=== PATIENT | male | born 1975 | race Caucasian/White ===

== ENCOUNTER 2021-10-15 19:37 | Inpatient (IN) ==
[2021-10-15] MEDS ORDERED: ONDANSETRON INJ 2 MG/ML 2 ML VIAL IV STA (19:43)
[2021-10-15] MEDS ORDERED: SODIUM CHLORIDE 0.9% 1000ML 1,000 ML IV ONE (19:43)
[2021-10-15] MEDS ORDERED: ONDANSETRON INJ 2 MG/ML 2 ML VIAL ONE (19:45)
[2021-10-15] MEDS ORDERED: MoRPHine SULFATE 4 MG/ML 1 ML CARP\\VIAL IV STA (19:48)
--- NOTE | 2021-10-15 19:54 | Emergency Department Note ---
History of Present Illness General Chief Complaint: Vomiting Stated Complaint: VOMITING/ ABDOMINAL PAIN Time Seen by Provider: 10/15/21 19:43 History of Present Illness Provider Complaint: abdominal pain Onset (ago): 1 day(s) Pain Consistency: constant Location: epigastric Radiation: back Maximum Pain Intensity: 8 Current Pain Intensity: 8 Quality: + stabbing and + sharp Relieved By: + nothing Exacerbated By: + nothing Context: + possible food poisoning (Started after eating spicy food yesterday); no foreign travel, no sick contacts, no recent antibiotic use, no recent surgery/procedure or no recent injury Associated Symptoms: + nausea; no vomiting, no diarrhea, no fever, no chills, no constipation, no dysuria, no hematemesis, no hematochezia, no melena, no hematuria, no anorexia, no syncope, no headache, no neck pain, no chest pain, no weakness and no numbness Home Medications Medication Instructions Recorded Confirmed Type No Known Home Medications 10/15/21 10/15/21 History Allergies Allergy/AdvReac Type Severity Reaction Status Date / Time No Known Allergies Allergy Unverified 10/15/21 21:35 Past Med/Surg History Medical History No pertinent family history No pertinent past medical history Surgical History No pertinent past surgical history Social History Smoking Status: Never smoker Hx Alcohol Use: No Hx Substance Use: No Preferred Language: Macedonian Feels Safe at Home: Yes Review of Systems A total of 10 systems reviewed and were otherwise negative Physical Exam Vital Signs: Vital Signs - 24 hr 10/15/21 19:41 10/15/21 19:51 10/15/21 20:03 Temperature Temperature Source Pulse Rate 73 69 48 L Pulse Rate from Sp O2 Sensor Respiratory Rate 18 19 16 Blood Pressure 130/92 147/87 H 104/64 Blood Pressure Camryn n 104 107 77 Blood Pressure Pos ition Sitting Pulse Oximetry 98 96 96 Oxygen Delivery Me thod Room Air Room Air Room Air Sepsis Recent Feve r Within 48 Hours No Sepsis New/Unexpla ined Change in Men anam Status N/A Sepsis Action Take n by Nursing No Action Required 10/15/21 20:15 10/15/21 20:32 10/15/21 20:45 Temperature Temperature Source Pulse Rate 57 L 79 60 Pulse Rate from Sp O2 Sensor 80 Respiratory Rate 19 14 17 Blood Pressure 136/86 146/88 H Blood Pressure Camryn n 102 107 Blood Pressure Pos ition Pulse Oximetry 95 97 Oxygen Delivery Me thod Room Air Sepsis Recent Feve r Within 48 Hours Sepsis New/Unexpla ined Change in Men anam Status Sepsis Action Take n by Nursing 10/15/21 21:00 10/15/21 21:11 10/15/21 21:15 Temperature 36.1 C L Temperature Source Oral Pulse Rate 60 64 Pulse Rate from Sp O2 Sensor Respiratory Rate 15 18 Blood Pressure 142/90 H 141/90 H Blood Pressure Camryn n 107 107 Blood Pressure Pos ition Pulse Oximetry 96 96 Oxygen Delivery Me thod Room Air Room Air Sepsis Recent Feve r Within 48 Hours Sepsis New/Unexpla ined Change in Men anam Status Sepsis Action Take n by Nursing 10/15/21 21:30 10/15/21 22:00 10/15/21 22:30 Temperature Temperature Source Pulse Rate 64 68 85 Pulse Rate from Sp O2 Sensor Respiratory Rate 21 17 19 Blood Pressure 137/80 150/91 H 152/93 H Blood Pressure Camryn n 99 110 112 Blood Pressure Pos ition Pulse Oximetry 96 94 95 Oxygen Delivery Me thod Room Air Room Air Room Air Sepsis Recent Feve r Within 48 Hours Sepsis New/Unexpla ined Change in Men anam Status Sepsis Action Take n by Nursing 10/15/21 23:00 10/15/21 23:30 Temperature Temperature Source Pulse Rate 69 73 Pulse Rate from Sp O2 Sensor Respiratory Rate 12 21 Blood Pressure 149/95 H 145/97 H Blood Pressure Camryn n 113 113 Blood Pressure Pos ition Pulse Oximetry 94 93 Oxygen Delivery Me thod Room Air Room Air Sepsis Recent Feve r Within 48 Hours Sepsis New/Unexpla ined Change in Men anam Status Sepsis Action Take n by Nursing Physical Exam: Physical Exam GENERAL: Distressed. HENT: Exam performed. - Head: Normocephalic and atraumatic. - Right Ear: External ear normal. No mastoid tenderness. - Left Ear: External ear normal. No mastoid tenderness. - Mouth/Throat: The oropharynx is clear and moist. No trismus in the jaw. No dental abscesses or uvula swelling. No oropharyngeal exudate or tonsillar abscesses. EYES: Conjunctivae and EOM are normal. Pupils are equal, round, and reactive to light. Right eye exhibits no discharge. Left eye exhibits no discharge. No scleral icterus. NECK: Normal range of motion. Neck supple. No JVD present. No spinous process tenderness present. No carotid bruit present. No rigidity. No tracheal deviation and normal range of motion present. No Brudzinski's sign and no Kernig's sign noted. CV: Normal rate, regular rhythm, normal heart sounds and intact distal pulses. There is no peripheral edema. Palpable radial pulses bue. PULM/CHEST: Effort normal and breath sounds normal. No respiratory distress. No stridor. He has no wheezes. He has no rales. - Chest Wall: He exhibits no tenderness. ABD: The abdomen is soft. Bowel sounds are normal. He has no distension. No mass is present. There is tenderness to palpation of the abdominal epigastric area. There is no rebound, no guarding, no Pak's sign and no tenderness at McBurney's point. Rovsig negative. MUSC/SKEL: Normal range of motion. There is no peripheral edema, tenderness or deformity. LYMPH: No cervical adenopathy. NEURO: He is alert and oriented to person, place, and time. He has normal strength. No cranial nerve deficit or sensory deficit. Coordination and gait normal. GCS eye subscore is 4. GCS verbal subscore is 5. GCS motor subscore is 6. Cerebellar tests wnl. SKIN: Patient is pale and diaphoretic. Course Course 194: The patient was evaluated in room A12. A complete history and physical exam was performed Cardiac monitoring: An order was placed for continuous cardiac monitoring. The monitor shows a rate of 70 with sinus rhythm 2114: Vital signs stable. Labs show white blood cell count of 12 normal bilirub in 4.7 direct bilirubin 2.3 AST 1300 ALT 930 alkaline phosphatase 109 lipase 10,707. Imaging shows acute pancreatitis with reactive cholecystitis primary cholecystitis considered less likely. Chest x-ray negative. [facility]. Administered Medications Lactated Ringer's (Lr) 1,000 mls @ 200 mls/hr IV .Q5H STA Stop: 10/16/21 02:21 Last Admin: 10/15/21 22:12 Dose: 200 mls/hr Documented by: [id number] Discontinued Medications Sodium Chloride (Nss 1000ml) 1,000 mls @ 999 mls/hr IV .Q1H1M ONE Stop: 10/15/21 20:43 Last Infusion: 10/15/21 22:07 Dose: 0 mls/hr Documented by: [id number] Admin: 10/15/21 19:58 Dose: 999 mls/hr Documented by: [id number] Piperacillin Sod/Tazobactam Sod (Zosyn) 4.5 gm in 120 mls @ 240 mls/hr IV NOW STA Stop: 10/15/21 21:51 Last Infusion: 10/15/21 22:13 Dose: 0 mls/hr Documented by: [id number] Admin: 10/15/21 21:40 Dose: 240 mls/hr Documented by: [id number] Ioversol (Optiray 320 100ml) 94 ml IV ONCE ONE Stop: 10/15/21 20:24 Last Admin: 10/15/21 20:25 Dose: 94 ml Documented by: [id number] Morphine Sulfate (Morphine Sulfate 4 Mg/Ml 1 Ml Carp\Vial) 4 mg IV NOW STA Stop: 10/15/21 19:49 Last Admin: 10/15/21 20:00 Dose: 2 mg Documented by: [id number] Ondansetron HCl (Ondansetron Inj 2 Mg/Ml 2 Ml Vial) 4 mg IV NOW STA Stop: 10/15/21 19:44 Last Admin: 10/15/21 19:58 Dose: 4 mg Documented by: [id number] Ondansetron HCl (Ondansetron Inj 2 Mg/Ml 2 Ml Vial) Confirm Administered Dose 4 mg .ROUTE .STK-MED ONE Stop: 10/15/21 19:46 Last Admin: 10/15/21 20:01 Dose: Not Given Documented by: [id number] Medical Decision Making Laboratory Data Result diagrams: 10/15/21 19:55 10/15/21 19:55 Lab Results 10/15/21 10/15/21 10/15/21 Range/Units 19:55 19:55 20:03 WBC 12.04 H (4.8-10.8) K/uL RBC 5.80 (4.7-6.1) M/uL Hgb 18.4 H (14.0-18.0) g/dL POC Hgb 18.0 (14.0-18.0) g/dl Hct 50.4 (42-52) % POC Hct 53 H (42-52) % MCV 86.9 (80-100) fL MCH 31.7 (25-34) pg MCHC 36.5 H (32-36) g/dL RDW Std Deviation 39.2 (36.4-46.3) fL RDW Coeff of Dawna 12.4 (11.5-14.5) % Plt Count 292 (130-400) K/uL MPV 9.1 (7.4-10.4) fL Immature Gran % (Auto) 0.2 % Neut % (Auto) 73.2 % Lymph % (Auto) 16.9 % [place] % (Auto) 9.1 % Eos % (Auto) 0.4 % Baso % (Auto) 0.2 % Neut # (Auto) 8.83 H (1.4-6.5) K/uL Lymph # (Auto) 2.03 (1.2-3.4) K/uL [place] # (Auto) 1.09 H (0.11-0.59) K/uL Eos # (Auto) 0.05 (0-0.5) K/uL Baso # (Auto) 0.02 (0-0.2) K/uL Immature Gran # (Auto) 0.02 (0.00-0.02) K/uL POC Sodium 141 (135-144) mmol/L Sodium 139 (136-145) mmol/L POC Potassium 3.4 (3.3-5.0) mmol/L Potassium 3.4 L (3.5-5.1) mmol/L POC Chloride 99 L (101-112) mmol/L Chloride 101 (98-107) mmol/L Carbon Dioxide 28 (21-32) mmol/L POC Total CO2 27 (24-31) mmol/L Anion Gap 10 (3-11) POC Anion Gap 20.0 (16-25) mmol/L POC BUN 9 (7-18) mg/dl BUN 11 (6-23) mg/dl Creatinine 0.88 (0.6-1.4) mg/dl POC Creatinine 0.8 (0.6-1.3) mg/dl Est Cr Clr Drug Dosing 123.2 ml/min Est GFR ( Amer) 120.2 ml/min Est GFR (Non-Af Amer) 103.7 ml/min BUN/Creatinine Ratio 12.5 (10-20) Glucose 154 H (70-99(Fasting)) mg/dl POC Glucose (other) 161 H (70-99) mg/dl Calcium 9.3 (8.5-10.1) mg/dl POC Ioniz Calcium Bernie 1.07 L (1.12-1.32) mmol/l Total Bilirubin 4.7 H (0.2-1.0) mg/dl Direct Bilirubin 2.3 H (0-0.2) mg/dl AST 1300 H (13-39) U/L ALT 930 H (7-52) U/L Alkaline Phosphatase 109 H (34-104) U/L Total Protein 7.9 (6.0-8.3) gm/dl Albumin 4.7 (3.4-5.0) gm/dl Lipase 31054 H (11-82) U/L SARS-CoV-2, RNA, NAAT (NEGATIVE) 10/15/21 Range/Units 21:02 WBC (4.8-10.8) K/uL RBC (4.7-6.1) M/uL Hgb (14.0-18.0) g/dL POC Hgb (14.0-18.0) g/dl Hct (42-52) % POC Hct (42-52) % MCV (80-100) fL MCH (25-34) pg MCHC (32-36) g/dL RDW Std Deviation (36.4-46.3) fL RDW Coeff of Dawna (11.5-14.5) % Plt Count (130-400) K/uL MPV (7.4-10.4) fL Immature Gran % (Auto) % Neut % (Auto) % Lymph % (Auto) % [place] % (Auto) % Eos % (Auto) % Baso % (Auto) % Neut # (Auto) (1.4-6.5) K/uL Lymph # (Auto) (1.2-3.4) K/uL [place] # (Auto) (0.11-0.59) K/uL Eos # (Auto) (0-0.5) K/uL Baso # (Auto) (0-0.2) K/uL Immature Gran # (Auto) (0.00-0.02) K/uL POC Sodium (135-144) mmol/L Sodium (136-145) mmol/L POC Potassium (3.3-5.0) mmol/L Potassium (3.5-5.1) mmol/L POC Chloride (101-112) mmol/L Chloride (98-107) mmol/L Carbon Dioxide (21-32) mmol/L POC Total CO2 (24-31) mmol/L Anion Gap (3-11) POC Anion Gap (16-25) mmol/L POC BUN (7-18) mg/dl BUN (6-23) mg/dl Creatinine (0.6-1.4) mg/dl POC Creatinine (0.6-1.3) mg/dl Est Cr Clr Drug Dosing ml/min Est GFR ( Amer) ml/min Est GFR (Non-Af Amer) ml/min BUN/Creatinine Ratio (10-20) Glucose (70-99(Fasting)) mg/dl POC Glucose (other) (70-99) mg/dl Calcium (8.5-10.1) mg/dl POC Ioniz Calcium Bernie (1.12-1.32) mmol/l Total Bilirubin (0.2-1.0) mg/dl Direct Bilirubin (0-0.2) mg/dl AST (13-39) U/L ALT (7-52) U/L Alkaline Phosphatase (34-104) U/L Total Protein (6.0-8.3) gm/dl Albumin (3.4-5.0) gm/dl Lipase (11-82) U/L SARS-CoV-2, RNA, NAAT NEGATIVE (NEGATIVE) Imaging Data Radiologist's Impression: Abdomen/Pelvis CT 10/15/21 19:48 CT abd pelvis IV con only CLINICAL HISTORY: epigastric pain TECHNIQUE: Helical axial images of the abdomen and pelvis were obtained and displayed. Automated dose lowering techniques and/or adjustment according to pat ient size were utilized for this exam. This exam was performed with intravenous contrast. CT DOSE: 549.41 mGy.cm COMPARISON: None available at the time of this dictation. FINDINGS: Lower chest: Bibasilar atelectasis versus scarring is seen. Liver: Unremarkable. No focal lesions are seen. Gallbladder and biliary tree: The gallbladder wall is thickened measuring 4 mm. Pericholecystic fluid is seen. No intra- or extrahepatic biliary ductal dilation. Pancreas: A small amount of edema is seen at the pancreatic head and there is peripancreatic fluid. Spleen: Unremarkable. Adrenals: Unremarkable. Kidneys and ureters: There is a cyst in the right kidney inferior pole. Bladder: Unremarkable. Reproductive organs: Unremarkable. Bowel: Unremarkable appearance of the bowel. The appendix is normal. Lymph nodes Retroperitoneal: Unremarkable. Mesenteric: Unremarkable. Pelvic: Unremarkable. Peritoneum: Fluid is seen about the pancreas and extending about the upper abdo men. Vessels: Unremarkable. Abdominal wall: Unremarkable. Bones: Unremarkable. IMPRESSION: Findings are compatible with acute pancreatitis with reactive cholecystitis. Primary cholecystitis is considered less likely. No wall off fluid collection or necrosis is seen. ACT 112: Negative or not required by law. Electronically signed by: Efren Mcfadden M.D. 10/15/2021 8:51 PM Chest X-Ray 10/15/21 19:49 XR chest 1V portable CLINICAL HISTORY: epigastric pain TECHNIQUE: Single frontal radiograph of the chest was obtained. Comparison: None available at the time of this dictation. FINDINGS: No lines and tubes are seen. The cardiomediastinal silhouette is normal. Mild atelectasis is at the left lung base. No evidence of pleural effusion or pneumot horax. IMPRESSION: No acute chest disease. ACT 112: Negative or not required by law. Electronically signed by: Efren Mcfadden M.D. 10/15/2021 8:15 PM ECG Data Indication: abdominal pain Rate (beats per minute): 66 Rhythm: normal sinus Findings: no ST depression, no ST elevation or no prolonged QT MDM Narrative Vital signs stable. Labs show white blood cell count of 12 normal bilirubin 4.7 direct bilirubin 2.3 AST 1300 ALT 930 alkaline phosphatase 109 lipase 10,707. Imaging shows acute pancreatitis with reactive cholecystitis primary cholecystitis considered less likely. Chest x-ray negative. [facility]. Impression & Plan Pancreatitis Discharge Plan Visit Data Chief Complaint: Vomiting Stated Complaint: VOMITING/ ABDOMINAL PAIN Discharge Problem: Pancreatitis Patient Disposition: Admitted As Inpatient Forms Stand Alone Forms: [facility] Prescriptions Prescriptions: No Action No Known Home Medications RF: 0 Referrals Referrals: PCP,NO [Primary Care Provider] -
[2021-10-15 20:08] LABS: Basophils # (auto) 0.02 K/uL (0-0.2); Basophils % (auto) 0.2 %; Eosinophils # (auto) 0.05 K/uL (0-0.5); Eosinophils % (auto) 0.4 %; Hematocrit (blood only) 50.4 % (42-52); Hemoglobin 18.4 g/dL (14.0-18.0); Immature Granulocytes # (auto) 0.02 K/uL (0.00-0.02); Immature Granulocytes % (auto) 0.2 %; Lymphocytes # (auto) 2.03 K/uL (1.2-3.4); Lymphocytes % (auto) 16.9 %; Mean Corpuscular Hemoglobin 31.7 pg (25-34); Mean Corpuscular Hgb Conc 36.5 g/dL (32-36); Mean Corpuscular Volume 86.9 fL (80-100); Mean Platelet Volume 9.1 fL (7.4-10.4); Monocytes # (auto) 1.09 K/uL (0.11-0.59); Monocytes % (auto) 9.1 %; Neutrophils # (auto) 8.83 K/uL (1.4-6.5); Neutrophils % (auto) 73.2 %; Platelet Count 292 K/uL (130-400); RDW Coefficient of Variation 12.4 % (11.5-14.5); RDW Standard Deviation 39.2 fL (36.4-46.3); White Blood Count 12.04 K/uL (4.8-10.8)
[2021-10-15 20:15] LABS: iSTAT Creatinine 0.8 mg/dl (0.6-1.3); iSTAT Ionized Calcium 1.07 mmol/l (1.12-1.32); iSTAT Potassium 3.4 mmol/L (3.3-5.0)
--- NOTE | 2021-10-15 20:17 | XRay Report ---
XR chest 1V portable CLINICAL HISTORY: epigastric pain TECHNIQUE: Single frontal radiograph of the chest was obtained. Comparison: None available at the time of this dictation. FINDINGS: No lines and tubes are seen. The cardiomediastinal silhouette is normal. Mild atelectasis is at the l eft lung base. No evidence of pleural effusion or pneumothorax. IMPRESSION: No acute chest disease. ACT 112: Negative or not required by law. Electronically signed by: Efren Mcfadden M.D. 10/15/2021 8:15 PM
[2021-10-15] MEDS ORDERED: OPTIRAY 320 100ml IV ONE (20:23)
[2021-10-15 20:36] LABS: BUN Creatinine Ratio 12.5 (10-20); Calcium 9.3 mg/dl (8.5-10.1); Creatinine Clr Calc Pharmacy 123.2 ml/min; Est GFR (African American) 120.2 ml/min; Est GFR (Non-African American) 103.7 ml/min; Potassium 3.4 mmol/L (3.5-5.1)
[2021-10-15 20:47] LABS: Albumin Level 4.7 gm/dl (3.4-5.0); Bilirubin Direct 2.3 mg/dl (0-0.2); Bilirubin,Total 4.7 mg/dl (0.2-1.0); Total Protein 7.9 gm/dl (6.0-8.3)
--- NOTE | 2021-10-15 20:53 | CT Scan Report ---
CT abd pelvis IV con only CLINICAL HISTORY: epigastric pain TECHNIQUE: Helical axial images of the abdomen and pelvis were obtained and displayed. Automated dose lowering techniques and/or adjustment according to patient size were utilized for this exam. This e xam was performed with intravenous contrast. CT DOSE: 549.41 mGy.cm COMPARISON: None available at the time of this dictation. FINDINGS: Lower chest: Bibasilar atelectasis versus scarring is seen. Liver: Unremarkable. No focal lesions are seen. Gallbladder and biliary tree: The gallbladder wall is thickened measuring 4 mm. Pericholecystic fluid is seen. No intra- or extrahepatic biliary ductal dilation. Pancreas: A small amount of edema is seen at the pancreatic head and there is peripancreatic fluid. Spleen: Unremarkable. Adrenals: Unremarkable. Kidneys and ureters: There is a cyst in the right kidney inferior pole. Bladder: Unremarkable. Reproductive organs: Unremarkable. Bowel: Unremarkable appearance of the bowel. The appendix is normal. Lymph nodes Retroperitoneal: Unremarkable. Mesenteric: Unremarkable. Pelvic: Unremarkable. Peritoneum: Fluid is seen about the pancreas and extending about the upper abdomen. Vessels: Unremarkable. Abdominal wall: Unremarkable. Bones: Unremarkable. IMPRESSION: Findings are compatible with acute pancreatitis with reactive cholecystitis. Primary cholecystitis is considered less likely. No wall off fluid collection or necrosis is seen. ACT 112: Negative or not required by law. Electronically signed by: Efren Mcfadden M.D. 10/15/2021 8:51 PM
[2021-10-15] MEDS ORDERED: PIPERACILLIN/TAZOBACTAM 4.5 GM/120 ML BAG IV STA (21:22)
[2021-10-15] MEDS ORDERED: LACTATED RINGER'S 1,000 ML IV STA (21:22)
--- NOTE | 2021-10-15 22:51 | History & Physical Report ---
Date of Service October 15, 2021 Assessment & Plan (1) Pancreatitis: Plan: Possible biliary etiology with possible cholecystitis on imaging Rule out CBD stone given abnormal LFTs No overt sepsis for now Situational hypertension Hyperglycemia rule out DM GMF Bowel rest, IVF Zosyn for possible cholecystitis MRCP Re: Abnormal LFTs GI consult Re: Pancreatitis, abnormal LFTs General surgery consult Re: Possible cholecystitis Check hemoglobin A1c DVT prophylaxis per Lovenox subcu Full code Patient requesting updates from providers. Ms. Lida More, contact #[phone]. Text document was generated using [employer] voice recognition software. It may contain grammatical or spelling errors. Kindly contact undersigned for clarification of any documentation item in question. History of Present Illness Chief Complaint: Abdominal pain Primary Care Provider: NO PCP History obtained from patient and records. No significant medical history. Patient woke up this morning with epigastric discomfort described as tightness. Admits to spicy food and beer intake last night before going to bed. Subsequent emesis. No chest pain, no SOB, no fever, no chills. May have had mild episodes of postprandial discomfort in the past spontaneously resolving. Medical History as above Surgical History : None Family History : Pancreatic tumor, gallstones Personal/Social history : Non-smoker, occasional EtOH intake, [employer] Allergies Allergy/AdvReac Type Severity Reaction Status Date / Time No Known Allergies Allergy Unverified 10/15/21 21:35 Home Medications Medication Instructions Recorded Confirmed Type No Known Home Medications 10/15/21 10/15/21 History Past Med/Surg History Medical History No pertinent family history No pertinent past medical history Surgical History No pertinent past surgical history Social History Smoking Status: Never smoker Hx Alcohol Use: Yes Alcohol type: beer Hx Substance Use: No Preferred Language: Maltese Dry Paste Supervisor Required: No Beliefs That Will Affect Care: None Current Living Situation: Spouse Feels Safe at Home: Yes Safety Concerns: Feels Safe At This Time Assistive Devices: Glasses Review of Systems Review of Systems: As per HPI, all other systems reviewed and negative Physical Exam Physical Exam: GENERAL: Comfortable, slightly anxious, pleasant, no respiratory distress SKIN: Normal color, warm HEENT: Bespectacled, [place] palpebral conjunctivae, no ptosis, dry buccal mucosa NECK : Supple, no tenderness CHEST : CTA, no tenderness HEART : RRR, no obvious murmurs ABDOMEN: Some distention, epigastric tenderness EXTREMITIES : No LE swelling/tenderness, no other conspicuous deformities noted NEUROLOGIC : Coherent, no facial asymmetry, no other gross focality Results & Data Results & Data ([facility]) Vital Signs (Past 12 Hours) Vital Signs Temp Pulse Resp BP Pulse Ox 10/15/21 22:00 68 17 150/91 H 94 10/15/21 21:30 64 21 137/80 96 10/15/21 21:15 64 18 141/90 H 96 10/15/21 21:11 36.1 C L 10/15/21 21:00 60 15 142/90 H 96 10/15/21 20:45 60 17 146/88 H 10/15/21 20:32 79 14 97 10/15/21 20:15 57 L 19 136/86 95 10/15/21 20:03 48 L 16 104/64 96 10/15/21 19:51 69 19 147/87 H 96 10/15/21 19:41 73 18 130/92 98 Laboratory Results Laboratory Results WBC 12.04 K/uL (4.8-10.8) H 10/15/21 19:55 RBC 5.80 M/uL (4.7-6.1) 10/15/21 19:55 Hgb 18.4 g/dL (14.0-18.0) H 10/15/21 19:55 POC Hgb 18.0 g/dl (14.0-18.0) 10/15/21 20:03 Hct 50.4 % (42-52) 10/15/21 19:55 POC Hct 53 % (42-52) H 10/15/21 20:03 MCV 86.9 fL (80-100) 10/15/21 19:55 MCH 31.7 pg (25-34) 10/15/21 19:55 MCHC 36.5 g/dL (32-36) H 10/15/21 19:55 RDW Std Deviation 39.2 fL (36.4-46.3) 10/15/21 19:55 RDW Coeff of Dawna 12.4 % (11.5-14.5) 10/15/21 19:55 Plt Count 292 K/uL (130-400) 10/15/21 19:55 MPV 9.1 fL (7.4-10.4) 10/15/21 19:55 Immature Gran % (Auto) 0.2 % 10/15/21 19:55 Neut % (Auto) 73.2 % 10/15/21 19:55 Lymph % (Auto) 16.9 % 10/15/21 19:55 Imperial % (Auto) 9.1 % 10/15/21 19:55 Eos % (Auto) 0.4 % 10/15/21 19:55 Baso % (Auto) 0.2 % 10/15/21 19:55 Neut # (Auto) 8.83 K/uL (1.4-6.5) H 10/15/21 19:55 Lymph # (Auto) 2.03 K/uL (1.2-3.4) 10/15/21 19:55 Imperial # (Auto) 1.09 K/uL (0.11-0.59) H 10/15/21 19:55 Eos # (Auto) 0.05 K/uL (0-0.5) 10/15/21 19:55 Baso # (Auto) 0.02 K/uL (0-0.2) 10/15/21 19:55 Immature Gran # (Auto) 0.02 K/uL (0.00-0.02) 10/15/21 19:55 POC Sodium 141 mmol/L (135-144) 10/15/21 20:03 Sodium 139 mmol/L (136-145) 10/15/21 19:55 POC Potassium 3.4 mmol/L (3.3-5.0) 10/15/21 20:03 Potassium 3.4 mmol/L (3.5-5.1) L 10/15/21 19:55 POC Chloride 99 mmol/L (101-112) L 10/15/21 20:03 Chloride 101 mmol/L (98-107) 10/15/21 19:55 Carbon Dioxide 28 mmol/L (21-32) 10/15/21 19:55 POC Total CO2 27 mmol/L (24-31) 10/15/21 20:03 Anion Gap 10 (3-11) 10/15/21 19:55 POC Anion Gap 20.0 mmol/L (16-25) 10/15/21 20:03 POC BUN 9 mg/dl (7-18) 10/15/21 20:03 BUN 11 mg/dl (6-23) 10/15/21 19:55 Creatinine 0.88 mg/dl (0.6-1.4) 10/15/21 19:55 POC Creatinine 0.8 mg/dl (0.6-1.3) 10/15/21 20:03 Est Cr Clr Drug Dosing 123.2 ml/min 10/15/21 19:55 Est GFR ( Amer) 120.2 ml/min 10/15/21 19:55 Est GFR (Non-Af Amer) 103.7 ml/min 10/15/21 19:55 BUN/Creatinine Ratio 12.5 (10-20) 10/15/21 19:55 Glucose 154 mg/dl (70-99(Fasting)) H 10/15/21 19:55 POC Glucose (other) 161 mg/dl (70-99) H 10/15/21 20:03 Calcium 9.3 mg/dl (8.5-10.1) 10/15/21 19:55 POC Ioniz Calcium Bernie 1.07 mmol/l (1.12-1.32) L 10/15/21 20:03 Total Bilirubin 4.7 mg/dl (0.2-1.0) H 10/15/21 19:55 Direct Bilirubin 2.3 mg/dl (0-0.2) H 10/15/21 19:55 AST 1300 U/L (13-39) H 10/15/21 19:55 ALT 930 U/L (7-52) H 10/15/21 19:55 Alkaline Phosphatase 109 U/L (34-104) H 10/15/21 19:55 Total Protein 7.9 gm/dl (6.0-8.3) 10/15/21 19:55 Albumin 4.7 gm/dl (3.4-5.0) 10/15/21 19:55 Lipase 88367 U/L (11-82) H 10/15/21 19:55 SARS-CoV-2, RNA, NAAT NEGATIVE (NEGATIVE) 10/15/21 21:02 Impressions Abdomen/Pelvis CT 10/15/21 19:48 CT abd pelvis IV con only CLINICAL HISTORY: epigastric pain TECHNIQUE: Helical axial images of the abdomen and pelvis were obtained and displayed. Automated dose lowering techniques and/or adjustment according to patient size were utilized for this exam. This exam was performed with intravenous contrast. CT DOSE: 549.41 mGy.cm COMPARISON: None available at the time of this dictation. FINDINGS: Lower chest: Bibasilar atelectasis versus scarring is seen. Liver: Unremarkable. No focal lesions are seen. Gallbladder and biliary tree: The gallbladder wall is thickened measuring 4 mm. Pericholecystic fluid is seen. No intra- or extrahepatic biliary ductal dilation. Pancreas: A small amount of edema is seen at the pancreatic head and there is peripancreatic fluid. Spleen: Unremarkable. Adrenals: Unremarkable. Kidneys and ureters: There is a cyst in the right kidney inferior pole. Bladder: Unremarkable. Reproductive organs: Unremarkable. Bowel: Unremarkable appearance of the bowel. The appendix is normal. Lymph nodes Retroperitoneal: Unremarkable. Mesenteric: Unremarkable. Pelvic: Unremarkable. Peritoneum: Fluid is seen about the pancreas and extending about the upper abdomen. Vessels: Unremarkable. Abdominal wall: Unremarkable. Bones: Unremarkable. IMPRESSION: Findings are compatible with acute pancreatitis with reactive cholecystitis. Primary cholecystitis is considered less likely. No wall off fluid collection or necrosis is seen. ACT 112: Negative or not required by law. Electronically signed by: Efren Mcfadden M.D. 10/15/2021 8:51 PM Chest X-Ray 10/15/21 19:49 XR chest 1V portable CLINICAL HISTORY: epigastric pain TECHNIQUE: Single frontal radiograph of the chest was obtained. Comparison: None available at the time of this dictation. FINDINGS: No lines and tubes are seen. The cardiomediastinal silhouette is normal. Mild atelectasis is at the left lung base. No evidence of pleural effusion or pneumothorax. IMPRESSION: No acute chest disease. ACT 112: Negative or not required by law. Electronically signed by: Efren Mcfadden M.D. 10/15/2021 8:15 PM Diagnostic Findings EKG as per my interpretation :Rate 65, NSR, normal axis, no ischemia (1) Pancreatitis Acute pancreatitis complication: unspecified Chronicity: acute Pancreatitis type: unspecified pancreatitis type Qualified Code(s): K85.90 - Acute pancreatitis without necrosis or infection, unspecified
[2021-10-16] MEDS ORDERED: PROMETHAZINE HCL 12.5 MG in SODIUM CHLORIDE 0.9% 50 ML IV PRN (00:15)
[2021-10-16] MEDS ORDERED: oxyCODONE HCL IR 5 MG TAB (IMMEDIATE RELEASE) PO PRN (00:15)
[2021-10-16] MEDS ORDERED: LORazepam 0.5 MG in SYRINGE 0.25 ML IV PRN (00:15)
[2021-10-16] MEDS ORDERED: MoRPHine SULFATE 4 MG/ML 1 ML CARP\\VIAL IV PRN (00:15)
[2021-10-16] MEDS: PIPERACILLIN/TAZOBACTAM 3.375 GM in DEXTROSE 5% 100 ML IV SCH ×3 (04:32→20:28)
[2021-10-16] MEDS: LACTATED RINGER'S 1,000 ML IV SCH ×5 (08:03→23:58)
[2021-10-16] MEDS: ENOXAPARIN INJ 40 MG/0.4 ML SYR SQ SCH (08:03)
[2021-10-16 08:57] LABS: Eosinophils # (auto) 0.01 K/uL (0-0.5); Eosinophils % (auto) 0.1 %; Hematocrit (blood only) 45.7 % (42-52); Hemoglobin 16.6 g/dL (14.0-18.0); Immature Granulocytes # (auto) 0.02 K/uL (0.00-0.02); Immature Granulocytes % (auto) 0.2 %; Lymphocytes # (auto) 0.77 K/uL (1.2-3.4); Lymphocytes % (auto) 7.4 %; Mean Corpuscular Hemoglobin 31.3 pg (25-34); Mean Corpuscular Hgb Conc 36.3 g/dL (32-36); Mean Corpuscular Volume 86.1 fL (80-100); Mean Platelet Volume 9.1 fL (7.4-10.4); Monocytes # (auto) 0.66 K/uL (0.11-0.59); Monocytes % (auto) 6.3 %; Neutrophils # (auto) 8.95 K/uL (1.4-6.5); Platelet Count 235 K/uL (130-400); RDW Coefficient of Variation 12.8 % (11.5-14.5); RDW Standard Deviation 40.1 fL (36.4-46.3); Red Blood Count 5.31 M/uL (4.7-6.1); White Blood Count 10.41 K/uL (4.8-10.8)
[2021-10-16 09:15] LABS: Albumin Globulin Ratio 1.4 (0.9-2); Albumin Level 3.9 gm/dl (3.4-5.0); BUN Creatinine Ratio 12.9 (10-20); Calcium 8.8 mg/dl (8.5-10.1); Creatinine Clr Calc Pharmacy 127.6 ml/min; Est GFR (Non-African American) 105.2 ml/min; Globulin 2.7 gm/dl (2.5-4.0); Potassium 3.7 mmol/L (3.5-5.1); Total Protein 6.6 gm/dl (6.0-8.3)
[2021-10-16 09:16] LABS: Bilirubin,Total 7.1 mg/dl (0.2-1.0)
--- NOTE | 2021-10-16 10:10 | Gastrointestinal Consultation ---
Date of Consultation October 16, 2021 Assessment & Plan (1) Pancreatitis: Seemingly with gallstone pancreatitis without endorgan dysfunction, bilirubin is risen today white count has declined. No signs or obvious symptoms of cholangitis. LFTs may be edema however will obtain an MRCP and tentatively plan for an ERCP tomorrow morning. I would suggest antibiotics with broad- spectrum such as Zosyn, Rocephin, etc. N.p.o., continue IV fluids at 200 cc an hour with LR. Continue symptomatic care please call with questions. If has hemodynamic changes consistent with concern of cholangitis we will expedite ERCP, however in light of stability and improvement, we will await ERCP till tomorrow. History of Present Illness Attending Physician: Tima Duckworth MD History of Present Illness This is a 46 yo who presnts to the ER with acute onset of abdominal pain. Pain is located in the epigastrium and ruq. The pain came on acutely yesterday morning, very sharp in nature. Associated with nausea without vomiting. Did have 1 beer or 2 beers the night before, but does not commonly drink to excess. No fevers or chills currently. Pain is much more improved. Upon presentation he was found to have inflammation consistent with pancreatitis via biochemically as well as imaging modalities. His LFTs are elevated rising from 4.7-7.1 this morning white count is dropped from 12 down to normal range. He looks much more comfortable and states that he is improved. If disease, no intentional weight loss recently, no hematochezia hematemesis or melena. STATUS REF RANGE/AUTHOR Hx 10/15/21 19:49 Chest X-Ray Signed Efren Mcfadden 10/15/21 19:48 Abdomen/Pelvis CT Signed Efren Mcfadden 08/29/21 15:53 Scrotum Ultrasound Signed Efren Mcfadden Bakari 46, M0 1975 ADM IN,[id number] 6ft 2in 98.3kg BSA: 2.27m BMI: 27.8kg/m Acc# [id number] Full Code REG Service Level Service Surgical Services Allergies No Known Allergies Vital Signs Today 07:42 BP 138/77 Pulse 83 Resp 14 Temp 36.9 C O2 Sat 92 Delivery Room Air Problems ONSET Pancreatitis Home Meds Confirmed Prescription Monitoring Program MEDICATIONS (INSTRUCTIONS) LAST TAKEN Active No Known Home Medications Unknown Lab Results Last 24 Hrs Most Recent Diagnostic Imaging Reports Provider Notes Last 24 Hrs HISTORY & PHYSICAL History & Physical 10/15/21 22:51 GENERAL Emergency Room Visit Notes 10/15/21 19:49 Diagnostics Reports BAKARI MOREIRA [id number] Allergy/Adv: No Known Allergies Close Chest X-Ray (Signed) BogdanEfren - 10/15/21 Abdomen/Pelvis CT (Signed) Efren Mcfadden - 10/15/21 Scrotum Ultrasound (Signed) BogdanEfren - 08/29/21 [facility] [place], [place] [phone] CT Scan Report Patient:BAKARI MOREIRA Admit Date:10/15/21 MR#:[id number] Address1:[address] [facility] Acct ID:[id number] Address2: Date:1975 [facility] Zip:[place] [address] Age:46 Location:ED Sex:M Room/Bed: Att Phy: Diagnosis:VOMITING/ ABDOMINAL PAIN Shakila Phy:PCP,NO Service Date:10/15/21 Fam Phy: Interpreting Phy:Efren Mcfadden MDAdmit Phy: Ordering Phy:Ebenezer Martinez MD cc: ~ CT abd pelvis IV con only CLINICAL HISTORY: epigastric pain TECHNIQUE: Helical axial images of the abdomen and pelvis were obtained and displayed. Automated dose lowering techniques and/or adjustment according to patient size were utilized for this exam. This exam was performed with intravenous contrast. CT DOSE: 549.41 mGy.cm COMPARISON: None available at the time of this dictation. FINDINGS: Lower chest: Bibasilar atelectasis versus scarring is seen. Liver: Unremarkable. No focal lesions are seen. Gallbladder and biliary tree: The gallbladder wall is thickened measuring 4 mm. Pericholecystic fluid is seen. No intra- or extrahepatic biliary ductal dilation. Pancreas: A small amount of edema is seen at the pancreatic head and there is peripancreatic fluid. Spleen: Unremarkable. Adrenals: Unremarkable. Kidneys and ureters: There is a cyst in the right kidney inferior pole. Bladder: Unremarkable. Reproductive organs: Unremarkable. Bowel: Unremarkable appearance of the bowel. The appendix is normal. Lymph nodes Retroperitoneal: Unremarkable. Mesenteric: Unremarkable. Pelvic: Unremarkable. Peritoneum: Fluid is seen about the pancreas and extending about the upper abdomen. Vessels: Unremarkable. Abdominal wall: Unremarkable. Bones: Unremarkable. IMPRESSION: Findings are compatible with acute pancreatitis with reactive cholecystitis. Primary cholecystitis is considered less likely. No wall off fluid collection or necrosis is seen. ACT 112: Negative or not required by law. Electronically signed by: Efren Mcfadden M.D. 10/15/2021 8:51 PM Dictated:10/15/212042 Transcribed: 10/15/212042 Allergies Allergy/AdvReac Type Severity Reaction Status Date / Time No Known Allergies Allergy Unverified 10/15/21 21:35 Home Medications Medication Instructions Recorded Confirmed Type No Known Home Medications 10/15/21 10/15/21 History Patient History Medical History No pertinent family history No pertinent past medical history Surgical History No pertinent past surgical history Social History Smoking Status: Never smoker Hx Alcohol Use: Yes Alcohol type: beer Hx Substance Use: No Preferred Language: Syrian Colorist Formulator Required: No Beliefs That Will Affect Care: None Current Living Situation: Spouse Feels Safe at Home: Yes Safety Concerns: Feels Safe At This Time Assistive Devices: Glasses Review of Systems Review of Systems: All systems reviewed & are unremarkable except as noted in HPI & below Physical Exam Physical Exam: Alert and oriented x3 no apparent distress Rate and rhythm no murmurs rubs or gallops clear to auscultation bilaterally Abdomen soft tender in the epigastrium, no rebound Peripheral edema neurologically intact Normal affect Results & Data ([facility]) Vital Signs (Past 12 Hours) Vital Signs Temp Pulse Pulse Resp BP BP BP 10/16/21 07:42 36.9 C 83 14 138/77 10/16/21 00:30 37.3 C 18 165/90 H 10/15/21 23:30 73 21 145/97 H 10/15/21 23:00 69 12 149/95 H 10/15/21 22:30 85 19 152/93 H Pulse Ox 10/16/21 07:42 92 10/16/21 00:30 93 10/15/21 23:30 93 10/15/21 23:00 94 10/15/21 22:30 95 (1) Pancreatitis Acute pancreatitis complication: unspecified Chronicity: acute Pancreatitis type: unspecified pancreatitis type Qualified Code(s): K85.90 - Acute pancreat itis without necrosis or infection, unspecified
--- NOTE | 2021-10-16 10:52 | Surgery Consultation ---
Date of Consultation October 16, 2021 Assessment & Plan (1) Pancreatitis: (2) Elevated LFTs: 46-year-old gentleman presents with pancreatitis most likely from a gallstone, as well as elevated LFTs suggestive of choledocholithiasis. He may have reactive cholecystitis as well. Based on his laboratory evaluation, including his rising total bilirubin, he will require GI consult with ERCP. He will need his gallbladder removed at some point in the future either during this admission or soon after. I had a discussion with him about choledocholithiasis as well as laparoscopic cholecystectomy. All his questions were answered. We will follow along, awaiting GI input. History of Present Illness Reason for Consultation: Choledocholithiasis/pancreatitis Requesting Physician: Tima Duckworth MD Attending Physician: Tima Duckworth MD History of Present Illness 46-year-old gentleman and previously normal health presents with 1 day history of severe upper abdominal pain radiating to his back. He did have chills associated with this. He did have nausea associated with this. He denies fevers. The attack happened after eating spicy food. He denies changes in bowel habits. CT scan demonstrates pancreatitis. Liver function tests include total bilirubin of 7.3, up from 4.7 yesterday. Lipase yesterday was 10,500. Allergies Allergy/AdvReac Type Severity Reaction Status Date / Time No Known Allergies Allergy Unverified 10/15/21 21:35 Home Medications Medication Instructions Recorded Confirmed Type No Known Home Medications 10/15/21 10/15/21 History Patient History Medical History No pertinent family history No pertinent past medical history Surgical History No pertinent past surgical history Social History Smoking Status: Never smoker Hx Alcohol Use: Yes Alcohol type: beer Hx Substance Use: No Preferred Language: Burkinan Program Research Specialist Required: No Beliefs That Will Affect Care: None Current Living Situation: Spouse Feels Safe at Home: Yes Safety Concerns: Feels Safe At This Time Assistive Devices: Glasses Review of Systems Review of Systems: All systems reviewed & are unremarkable except as noted in HPI & below Physical Exam Constitutional: WD/WN, vitals as above Neck: trachea midline, no thyromegaly Respiratory: normal respiratory effort, lungs clear to auscultation Cardiovascular: RRR, no murmur, no edema Gastrointestinal (Abdomen): normal bowel sounds, soft, nontender, no h epatosplenomegaly Musculoskeletal: Extremities: no cyanosis and no clubbing Skin: no rashes, warm and dry Psychiatric: A+Ox3, euthymic affect Results & Data ([facility]) Vital Signs (Past 12 Hours) Vital Signs Temp Pulse Pulse Resp BP BP BP 10/16/21 07:42 36.9 C 83 14 138/77 10/16/21 00:30 37.3 C 18 165/90 H 10/15/21 23:30 73 21 145/97 H 10/15/21 23:00 69 12 149/95 H Pulse Ox 10/16/21 07:42 92 10/16/21 00:30 93 10/15/21 23:30 93 10/15/21 23:00 94 Laboratory Results 10/16/21 10/16/21 10/15/21 Range/Units 08:22 08:22 21:02 WBC 10.41 (4.8-10.8) K/uL RBC 5.31 (4.7-6.1) M/uL Hgb 16.6 (14.0-18.0) g/dL POC Hgb (14.0-18.0) g/dl Hct 45.7 (42-52) % POC Hct (42-52) % MCV 86.1 (80-100) fL MCH 31.3 (25-34) pg MCHC 36.3 H (32-36) g/dL RDW Std Deviation 40.1 (36.4-46.3) fL RDW Coeff of Dawna 12.8 (11.5-14.5) % Plt Count 235 (130-400) K/uL MPV 9.1 (7.4-10.4) fL Immature Gran % (Auto) 0.2 % Neut % (Auto) 86.0 % Lymph % (Auto) 7.4 % Starr % (Auto) 6.3 % Eos % (Auto) 0.1 % Baso % (Auto) 0.0 % Neut # (Auto) 8.95 H (1.4-6.5) K/uL Lymph # (Auto) 0.77 L (1.2-3.4) K/uL Starr # (Auto) 0.66 H (0.11-0.59) K/uL Eos # (Auto) 0.01 (0-0.5) K/uL Baso # (Auto) 0.00 (0-0.2) K/uL Immature Gran # (Auto) 0.02 (0.00-0.02) K/uL POC Sodium (135-144) mmol/L Sodium 136 (136-145) mmol/L POC Potassium (3.3-5.0) mmol/L Potassium 3.7 (3.5-5.1) mmol/L POC Chloride (101-112) mmol/L Chloride 103 (98-107) mmol/L Carbon Dioxide 25 (21-32) mmol/L POC Total CO2 (24-31) mmol/L Anion Gap 8 (3-11) POC Anion Gap (16-25) mmol/L POC BUN (7-18) mg/dl BUN 11 (6-23) mg/dl Creatinine 0.85 (0.6-1.4) mg/dl POC Creatinine (0.6-1.3) mg/dl Est Cr Clr Drug Dosing 127.6 ml/min Est GFR ( Amer) 122.0 ml/min Est GFR (Non-Af Amer) 105.2 ml/min BUN/Creatinine Ratio 12.9 (10-20) Glucose 136 H (70-99(Fasting)) mg/dl POC Glucose (other) (70-99) mg/dl Estimat Average Glucose Hemoglobin A1c Calcium 8.8 (8.5-10.1) mg/dl POC Ioniz Calcium Bernie (1.12-1.32) mmol/l Total Bilirubin 7.1 H D (0.2-1.0) mg/dl Direct Bilirubin (0-0.2) mg/dl AST 800 H (13-39) U/L ALT 1006 H (7-52) U/L Alkaline Phosphatase 127 H (34-104) U/L Total Protein 6.6 (6.0-8.3) gm/dl Albumin 3.9 (3.4-5.0) gm/dl Globulin 2.7 (2.5-4.0) gm/dl Albumin/Globulin Ratio 1.4 (0.9-2) Lipase (11-82) U/L SARS-CoV-2, RNA, NAAT NEGATIVE (NEGATIVE) 10/15/21 10/15/21 10/15/21 Range/Units 20:03 19:55 19:55 WBC (4.8-10.8) K/uL RBC (4.7-6.1) M/uL Hgb (14.0-18.0) g/dL POC Hgb 18.0 (14.0-18.0) g/dl Hct (42-52) % POC Hct 53 H (42-52) % MCV (80-100) fL MCH (25-34) pg MCHC (32-36) g/dL RDW Std Deviation (36.4-46.3) fL RDW Coeff of Dawna (11.5-14.5) % Plt Count (130-400) K/uL MPV (7.4-10.4) fL Immature Gran % (Auto) % Neut % (Auto) % Lymph % (Auto) % Starr % (Auto) % Eos % (Auto) % Baso % (Auto) % Neut # (Auto) (1.4-6.5) K/uL Lymph # (Auto) (1.2-3.4) K/uL Starr # (Auto) (0.11-0.59) K/uL Eos # (Auto) (0-0.5) K/uL Baso # (Auto) (0-0.2) K/uL Immature Gran # (Auto) (0.00-0.02) K/uL POC Sodium 141 (135-144) mmol/L Sodium 139 (136-145) mmol/L POC Potassium 3.4 (3.3-5.0) mmol/L Potassium 3.4 L (3.5-5.1) mmol/L POC Chloride 99 L (101-112) mmol/L Chloride 101 (98-107) mmol/L Carbon Dioxide 28 (21-32) mmol/L POC Total CO2 27 (24-31) mmol/L Anion Gap 10 (3-11) POC Anion Gap 20.0 (16-25) mmol/L POC BUN 9 (7-18) mg/dl BUN 11 (6-23) mg/dl Creatinine 0.88 (0.6-1.4) mg/dl POC Creatinine 0.8 (0.6-1.3) mg/dl Est Cr Clr Drug Dosing 123.2 ml/min Est GFR ( Amer) 120.2 ml/min Est GFR (Non-Af Amer) 103.7 ml/min BUN/Creatinine Ratio 12.5 (10-20) Glucose 154 H (70-99(Fasting)) mg/dl POC Glucose (other) 161 H (70-99) mg/dl Estimat Average Glucose Pending Hemoglobin A1c Pending Calcium 9.3 (8.5-10.1) mg/dl POC Ioniz Calcium Bernie 1.07 L (1.12-1.32) mmol/l Total Bilirubin 4.7 H (0.2-1.0) mg/dl Direct Bilirubin 2.3 H (0-0.2) mg/dl AST 1300 H (13-39) U/L ALT 930 H (7-52) U/L Alkaline Phosphatase 109 H (34-104) U/L Total Protein 7.9 (6.0-8.3) gm/dl Albumin 4.7 (3.4-5.0) gm/dl Globulin (2.5-4.0) gm/dl Albumin/Globulin Ratio (0.9-2) Lipase 80915 H (11-82) U/L SARS-CoV-2, RNA, NAAT (NEGATIVE) 10/15/21 Range/Units 19:55 WBC 12.04 H (4.8-10.8) K/uL RBC 5.80 (4.7-6.1) M/uL Hgb 18.4 H (14.0-18.0) g/dL POC Hgb (14.0-18.0) g/dl Hct 50.4 (42-52) % POC Hct (42-52) % MCV 86.9 (80-100) fL MCH 31.7 (25-34) pg MCHC 36.5 H (32-36) g/dL RDW Std Deviation 39.2 (36.4-46.3) fL RDW Coeff of Dawna 12.4 (11.5-14.5) % Plt Count 292 (130-400) K/uL MPV 9.1 (7.4-10.4) fL Immature Gran % (Auto) 0.2 % Neut % (Auto) 73.2 % Lymph % (Auto) 16.9 % Starr % (Auto) 9.1 % Eos % (Auto) 0.4 % Baso % (Auto) 0.2 % Neut # (Auto) 8.83 H (1.4-6.5) K/uL Lymph # (Auto) 2.03 (1.2-3.4) K/uL Starr # (Auto) 1.09 H (0.11-0.59) K/uL Eos # (Auto) 0.05 (0-0.5) K/uL Baso # (Auto) 0.02 (0-0.2) K/uL Immature Gran # (Auto) 0.02 (0.00-0.02) K/uL POC Sodium (135-144) mmol/L Sodium (136-145) mmol/L POC Potassium (3.3-5.0) mmol/L Potassium (3.5-5.1) mmol/L POC Chloride (101-112) mmol/L Chloride (98-107) mmol/L Carbon Dioxide (21-32) mmol/L POC Total CO2 (24-31) mmol/L Anion Gap (3-11) POC Anion Gap (16-25) mmol/L POC BUN (7-18) mg/dl BUN (6-23) mg/dl Creatinine (0.6-1.4) mg/dl POC Creatinine (0.6-1.3) mg/dl Est Cr Clr Drug Dosing ml/min Est GFR ( Amer) ml/min Est GFR (Non-Af Amer) ml/min BUN/Creatinine Ratio (10-20) Glucose (70-99(Fasting)) mg/dl POC Glucose (other) (70-99) mg/dl Estimat Average Glucose Hemoglobin A1c Calcium (8.5-10.1) mg/dl POC Ioniz Calcium Bernie (1.12-1.32) mmol/l Total Bilirubin (0.2-1.0) mg/dl Direct Bilirubin (0-0.2) mg/dl AST (13-39) U/L ALT (7-52) U/L Alkaline Phosphatase (34-104) U/L Total Protein (6.0-8.3) gm/dl Albumin (3.4-5.0) gm/dl Globulin (2.5-4.0) gm/dl Albumin/Globulin Ratio (0.9-2) Lipase (11-82) U/L SARS-CoV-2, RNA, NAAT (NEGATIVE) (1) Pancreatitis Acute pancreatitis complication: unspecified Chronicity: acute Pancreatitis type: unspecified pancreatitis type Qualified Code(s): K85.90 - Acute pancreatitis without necrosis or infection, unspecified
--- NOTE | 2021-10-16 12:07 | Magnetic Resonance Report ---
MRCP CLINICAL HISTORY: pancreatitis and elevated lft's, eval CBD TECHNIQUE: Utilizing a 1.5 Inge magnet and dedicated coil, multiplanar, multiecho imaging of the [facility] er abdomen was performed utilizing heavily T2 weighted pulsing sequences without IV contrast. COMPARISON STUDY: CT of the abdomen pelvis October 15, 2021. FINDINGS: No intra or extrahepatic biliary ductal dilatation is present. No common bile duct calculi are identified. There is apparent extrinsic narrowing of the mid common bile duct shown best on coron al 3-D MRCP the sequence image 60 of 108. This could be artifactual of related to extrinsic compressi on by the edematous pancreas. Course and caliber of the main pancreatic duct is normal. Peripancreati c fluid extending into the anterior pararenal spaces represents acute pancreatitis. No peripancreatic fluid collection is present. There are numerous gallstones within the gallbladder. Gallbladder is no t distended. Small amount of pericholecystic fluid is nonspecific in the setting of acute pancreatiti s. Perihepatic and perisplenic fluid is also noted. A suspected 2.7 cm cyst within lower pole of the right kidney is noted. There is no hydronephrosis. Unenhanced images of the adrenal glands, spleen ar e unremarkable. Caliber of visualized small and large bowel are normal. IMPRESSION: 1. No biliary ductal dilatation. No common bile duct calculi identified. Apparent irregularity/extrin sic narrowing of the mid common bile duct likely artifactual or related to mass effect on the common bile duct by the edematous pancreas. 2. Cholelithiasis. Small amount of pericholecystic fluid, probably related to acute pancreatitis. 3. Peripancreatic fluid extending into the anterior pararenal spaces. Associated perihepatic and angelina splenic fluid. The findings represent an acute pancreatitis. No peripancreatic fluid collection. ACT 112: Negative or not required by law. Electronically signed by: Kobi Gastelum M.D. 10/16/2021 12:04 PM
--- NOTE | 2021-10-16 14:36 | Anesthesiology Consultation ---
Date of Service October 16, 2021 Assessment & Plan (1) Encounter for pre-operative examination: Chart Review Chart Review: Acceptable Risk for Surgery History Surgery Operation Date: 10/17/21 09:30 Proposed Procedures p Endoscopic Retrograde Cholangiopancreato - Calvin Wills MD Height/Weight Height: 6 ft 2 in Weight: 98.3 kg Allergies Allergy/AdvReac Type Severity Reaction Status Date / Time No Known Allergies Allergy Unverified 10/15/21 21:35 Medications Home Medications Medication Instructions Recorded Confirmed Last Taken No Known Home Medications 10/15/21 10/15/21 Unknown Active Medications Generic Name Dose Route Start Last Admin Trade Name Freq PRN Reason Stop Dose Admin Enoxaparin Sodium 40 mg 10/16/21 09:00 10/16/21 08:03 Enoxaparin Inj 40 Mg/0.4 Ml Syr SQ 11/15/21 08:59 Not Given QAM FORTINO Lactated Ringer's 1,000 mls @ 200 mls/hr 10/16/21 03:00 10/16/21 14:05 Lr IV 11/15/21 02:59 200 mls/hr .Q5H FORTINO Administration Piperacillin Sod/Tazobactam 115 mls @ 28.75 mls/hr 10/16/21 04:00 10/16/21 13:05 Sod 3.375 gm/ Dextrose IV 10/26/21 03:59 28.8 mls/hr Q8H FORTINO Administration Protocol Past Medical History Medical History (Updated 10/16/21 @ 14:36 by Israel Blair MD) Elevated LFTs No pertinent past medical history Pancreatitis Past Surgical History Surgical History No pertinent past surgical history Social History Smoking Status: Never smoker Hx Alcohol Use: Yes Alcohol type: beer alcohol intake frequency: holidays/special occasions only Hx Substance Use: No substance use type: does not use Physical Exam Vital Signs Last Vital Signs Temp 36.9 C 10/16/21 07:42 Pulse 83 10/16/21 07:42 Resp 14 10/16/21 07:42 BP 138/77 10/16/21 07:42 Pulse Ox 92 10/16/21 07:42 Testing Laboratory Results 10/16/21 08:22 10/16/21 08:22 Electrocardiogram Date: 10/15/21 Findings: + NSR @ (65) and + NSST changes Chest X-Ray Date: 10/15/21 Findings: + NAD
[2021-10-16] MEDS ORDERED: MoRPHine SULFATE 2 MG/ML CARP IV PRN (14:40)
--- NOTE | 2021-10-16 14:42 | Hospitalist Progress Note ---
Date of Service October 16, 2021 Assessment & Plan (1) Pancreatitis: Plan: Acute pancreatitis Choledocholithiasis Transaminitis --CT ABD:Findings are compatible with acute pancreatitis with reactive cholecystitis. Primary cholecystitis is considered less likely. No wall off fluid collection or necrosis is seen. --MRCP:. No biliary ductal dilatation. No common bile duct calculi identified. Apparent irregularity/extrinsic narrowing of the mid common bile duct likely artifactual or related to mass effect on the common bile duct by the edematous pancreas. Cholelithiasis. Small amount of pericholecystic fluid, probably related to acute pancreatitis. Peripancreatic fluid extending into the anterior pararenal spaces. Associated perihepatic and perisplenic fluid. The findings represent an acute pancreatitis. No peripancreatic fluid collection. -- Blood cultures obtained --Lipase 16820 Empirically started on Zosyn Continue IV fluids Continue bolus Appreciate GI, surgery input Plan for ERCP tomorrow May need cholecystectomy eventually Hyperglycemia HbA1C: pending Situational hypertension BP Stable Monitor DVT Px: Lovenox SQ Code Status Full code Admission and Anticipated Discharge Date Admission Date: October 15, 2021 Subjective Patient is seen and examined at bedside Abdominal pain is better today Had MRCP earlier today Denies any nausea, vomiting, chest pain, shortness of breath, dizziness Offers no other complaints Family at bedside Review of Systems Review of Systems: All systems reviewed & are unremarkable except as noted in Subjective Physical Exam Physical Exam: Physical Exam: Vitals signs as noted above General Appearance:Moderately built and nourished, no apparent distress Head: normocephalic, Atraumatic Eyes: normal inspection, EOMI Neck: supple, Trachea midline Respiratory/Chest: Normal breath sounds, CTA, No accessory muscle use Cardiovascular: S1, S2, No murmur Abdomen/GI:Soft, LLQ tender, Bowel sounds present Extremities/Musculoskeletal:normal inspection, no edema Neurologic/Psych:AAOX3, grossly no focal neurological deficits Skin: normal color, warm Results & Data Results & Data ([facility]) Vital Signs (Past 12 Hours) Vital Signs Temp Pulse Resp BP Pulse Ox 10/16/21 07:42 36.9 C 83 14 138/77 92 Laboratory Results Short CBC 10/15/21 10/16/21 Range/Units 19:55 08:22 WBC 12.04 H 10.41 (4.8-10.8) K/uL Hgb 18.4 H 16.6 (14.0-18.0) g/dL Hct 50.4 45.7 (42-52) % Plt Count 292 235 (130-400) K/uL BMP 10/15/21 10/16/21 19:55 08:22 Sodium 139 136 Potassium 3.4 L 3.7 Chloride 101 103 Carbon Dioxide 28 25 BUN 11 11 Creatinine 0.88 0.85 Glucose 154 H 136 H Calcium 9.3 8.8 Liver Function 10/15/21 10/16/21 Range/Units 19:55 08:22 Total Bilirubin 4.7 H 7.1 H D (0.2-1.0) mg/dl Direct Bilirubin 2.3 H (0-0.2) mg/dl AST 1300 H 800 H (13-39) U/L ALT 930 H 1006 H (7-52) U/L Alkaline Phosphatase 109 H 127 H (34-104) U/L Albumin 4.7 3.9 (3.4-5.0) gm/dl (1) Pancreatitis Acute pancreatitis complication: unspecified Chronicity: acute Pancreatitis type: unspecified pancreatitis type Qualified Code(s): K85.90 - Acute pancreatitis without necrosis or infection, unspecified
[2021-10-16] MEDS: ACETAMINOPHEN 325 MG TAB PO PRN (20:32)
[2021-10-17] MEDS: PIPERACILLIN/TAZOBACTAM 3.375 GM in DEXTROSE 5% 100 ML IV SCH ×3 (03:55→19:53)
[2021-10-17] MEDS: LACTATED RINGER'S 1,000 ML IV SCH ×5 (03:55→21:22)
[2021-10-17 07:09] LABS: Mean Corpuscular Hemoglobin 30.4 pg (25-34); Mean Corpuscular Hgb Conc 34.9 g/dL (32-36); Mean Platelet Volume 9.3 fL (7.4-10.4); Platelet Count 186 K/uL (130-400); RDW Coefficient of Variation 12.9 % (11.5-14.5); RDW Standard Deviation 41.2 fL (36.4-46.3); Red Blood Count 4.94 M/uL (4.7-6.1); White Blood Count 9.38 K/uL (4.8-10.8)
[2021-10-17] MEDS: ENOXAPARIN INJ 40 MG/0.4 ML SYR SQ SCH (08:04)
[2021-10-17 08:13] LABS: BUN Creatinine Ratio 10.5 (10-20); Calcium 8.2 mg/dl (8.5-10.1); Creatinine Clr Calc Pharmacy 142.7 ml/min; Est GFR (African American) 127.7 ml/min; Est GFR (Non-African American) 110.2 ml/min; Potassium 3.5 mmol/L (3.5-5.1)
[2021-10-17 08:30] LABS: Albumin Globulin Ratio 1.4 (0.9-2); Albumin Level 3.6 gm/dl (3.4-5.0); Bilirubin,Total 8.8 mg/dl (0.2-1.0); Globulin 2.6 gm/dl (2.5-4.0); Magnesium 1.6 mg/dl (1.7-2.4); Total Protein 6.2 gm/dl (6.0-8.3)
[2021-10-17 09:11] LABS: Estimated Average Glucose 111 mg/dl; Hemoglobin A1C 5.5 % (4.5-5.6)
[2021-10-17] MEDS ORDERED: MAGNESIUM SULFATE / D5W 1 GM/100 ML BAG IV ONE (09:32)
--- NOTE | 2021-10-17 11:35 | Surgery Progress Note ---
Date of Service October 17, 2021 Assessment & Plan (1) Pancreatitis: (2) Elevated LFTs: Plan: 46-year-old gentleman presents with pancreatitis most likely from a gallstone, as well as elevated LFTs suggestive of choledocholithiasis. He may have reactive cholecystitis as well. Based on his laboratory evaluation, including his rising total bilirubin, he will require GI consult with ERCP. He will need his gallbladder removed at some point in the future either during this admission or soon after. I had a discussion with him about choledocholithiasis as well as laparoscopic cholecystectomy. All his questions were answered. We will follow along, awaiting GI input. 10/17/2021 11:38AM, DR. Tan F/Brandon choledocholithiasis /cholelithiasis/pancreatitis, pt is doing better, will have ERCP today, possible do laparoscopic cholecystectomy on 10/19/2021, D/W benefits, risks and alternatives of the surgery, pt understood, he agrees with the plan, I answered all questions,continue treatment, will F/u Admission and Anticipated Discharge Date Admission Date: October 15, 2021 Subjective Patient is seen and examined at bedside Abdominal pain is better today Had MRCP earlier today Denies any nausea, vomiting, chest pain, shortness of breath, dizziness Offers no other complaints Family at bedside 10/17/2021 11:34AM Dr. Tan F/U Choledocholithiasis/pancreatitis, pt feels better, less abdominal pain, no fever, Physical Exam Constitutional: WD/WN, vitals as above no distress, Eyes: PERRL, conjunctivae normal, anicteric sclerae Neck: trachea midline, no thyromegaly Respiratory: normal respiratory effort, lungs clear to auscultation Cardiovascular: RRR, no murmur, no edema Gastrointestinal (Abdomen): soft. mild tenderness at RUQ, no rebound pain, BS +, no distend, Musculoskeletal: no cyanosis or clubbing, extremities motor strength 5/5 Neurologic: patellar DTR's 2+ bilat, sensation intact Psychiatric: A+Ox3, euthymic affect Results & Data ([facility]) Vital Signs (Past 12 Hours) Vital Signs Temp Pulse Resp BP Pulse Ox 10/17/21 07:51 36.2 C L 89 18 155/84 H 90 Laboratory Results Abnormal Labs 10/15/21 10/15/21 10/15/21 19:55 19:55 20:03 WBC 12.04 H Hgb 18.4 H POC Hct 53 H MCHC 36.5 H Neut # (Auto) 8.83 H Lymph # (Auto) King # (Auto) 1.09 H Potassium 3.4 L POC Chloride 99 L Glucose 154 H POC Glucose (other) 161 H Calcium POC Ioniz Calcium Bernie 1.07 L Magnesium Total Bilirubin 4.7 H Direct Bilirubin 2.3 H AST 1300 H ALT 930 H Alkaline Phosphatase 109 H Lipase 44419 H 10/16/21 10/16/21 10/17/21 08:22 08:22 06:00 WBC Hgb POC Hct MCHC 36.3 H Neut # (Auto) 8.95 H Lymph # (Auto) 0.77 L King # (Auto) 0.66 H Potassium POC Chloride Glucose 136 H 119 H POC Glucose (other) Calcium 8.2 L POC Ioniz Calcium Bernie Magnesium 1.6 L Total Bilirubin 7.1 H D 8.8 H Direct Bilirubin AST 800 H 292 H ALT 1006 H 635 H Alkaline Phosphatase 127 H 132 H Lipase 276 H Diagnostic Findings MRCP CLINICAL HISTORY: pancreatitis and elevated lft's, eval CBD TECHNIQUE: Utilizing a 1.5 Inge magnet and dedicated coil, multiplanar, multiecho imaging of the upper abdomen was performed utilizing heavily T2 weighted pulsing sequences without IV contrast. COMPARISON STUDY: CT of the abdomen pelvis October 15, 2021. FINDINGS: No intra or extrahepatic biliary ductal dilatation is present. No common bile duct calculi are identified. There is apparent extrinsic narrowing of the mid common bile duct shown best on coronal 3-D MRCP the sequence image 60 of 108. This could be artifactual of related to extrinsic compression by the edematous pancreas. Course and caliber of the main pancreatic duct is normal. Peripancreatic fluid extending into the anterior pararenal spaces represents acute pancreatitis. No peripancreatic fluid collection is present. There are numerous gallstones within the gallbladder. Gallbladder is not distended. Small amount of pericholecystic fluid is nonspecific in the setting of acute pancreatitis. Perihepatic and perisplenic fluid is also noted. A suspected 2.7 cm cyst within lower pole of the right kidney is noted. There is no hydronephrosis. Unenhanced images of the adrenal glands, spleen are unremarkable. Caliber of visualized small and large bowel are normal. IMPRESSION: 1. No biliary ductal dilatation. No common bile duct calculi identified. Apparent irregularity/extrinsic narrowing of the mid common bile duct likely artifactual or related to mass effect on the common bile duct by the edematous pancreas. 2. Cholelithiasis. Small amount of pericholecystic fluid, probably related to acute pancreatitis. 3. Peripancreatic fluid extending into the anterior pararenal spaces. Associated perihepatic and perisplenic fluid. The findings represent an acute pancreatitis. No peripancreatic fluid collection. (1) Pancreatitis Acute pancreatitis complication: unspecified Chronicity: acute Pancreatitis type: unspecified pancreatitis type Qualified Code(s): K85.90 - Acute pancreatitis without necrosis or infection, unspecified
--- NOTE | 2021-10-17 13:25 | Gastroenterology Progress Note ---
Date of Service October 17, 2021 Assessment & Plan (1) Pancreatitis: Plan: Gallstone pancreatitis without end organ dysfunction, bilirubin is risen today white count has declined. No signs or obvious symptoms of cholangitis. Continue antibiotics Planning ERCP today, however due to OR and biliary endoscopist availability, postpone that tomorrow given his stability and lack of cholangitis. Admission and Anticipated Discharge Date Admission Date: October 15, 2021 Subjective feels improved today, less abdominal pain. No fever Physical Exam Constitutional: WD/WN, vitals as above no distress, Eyes: PERRL, conjunctivae normal, anicteric sclerae Neck: trachea midline, no thyromegaly Respiratory: normal respiratory effort, lungs clear to auscultation Cardiovascular: RRR, no murmur, no edema Gastrointestinal (Abdomen): soft. mild tenderness at RUQ, no rebound pain, BS +, no distend, Musculoskeletal: no cyanosis or clubbing, extremities motor strength 5/5 Neurologic: patellar DTR's 2+ bilat, sensation intact Psychiatric: A+Ox3, euthymic affect Results & Data ([facility]) Vital Signs (Past 12 Hours) Vital Signs Temp Pulse Resp BP Pulse Ox 10/17/21 07:51 36.2 C L 89 18 155/84 H 90 (1) Pancreatitis Acute pancreatitis complication: unspecified Chronicity: acute Pancreatitis type: unspecified pancreatitis type Qualified Code(s): K85.90 - Acute pancreatitis without necrosis or infection, unspecified
[2021-10-17] MEDS: ACETAMINOPHEN 325 MG TAB PO PRN (13:53)
--- NOTE | 2021-10-17 14:58 | Hospitalist Progress Note ---
Date of Service October 17, 2021 Assessment & Plan (1) Pancreatitis: Plan: Acute pancreatitis Choledocholithiasis Transaminitis --CT ABD:Findings are compatible with acute pancreatitis with reactive cholecystitis. Primary cholecystitis is considered less likely. No wall off fluid collection or necrosis is seen. --MRCP:. No biliary ductal dilatation. No common bile duct calculi identified. Apparent irregularity/extrinsic narrowing of the mid common bile duct likely artifactual or related to mass effect on the common bile duct by the edematous pancreas. Cholelithiasis. Small amount of pericholecystic fluid, probably related to acute pancreatitis. Peripancreatic fluid extending into the anterior pararenal spaces. Associated perihepatic and perisplenic fluid. The findings represent an acute pancreatitis. No peripancreatic fluid collection. -- Blood cultures obtained --Lipase [id number] Continue Zosyn Continue IV fluids Appreciate GI, surgery input Will need cholecystectomy eventually Plan for ERCP tomorrow N.p.o. after midnight Clear liquid diet today Hyperglycemia HbA1C: 5.5 Situational hypertension BP Stable Monitor DVT Px: Lovenox SQ Code Status Full code Admission and Anticipated Discharge Date Admission Date: October 15, 2021 Subjective Patient is seen and examined at bedside States feeling a lot better today Abdominal pain improving Discussed with GI today Family at bedside Could not perform a ERCP today Denies any nausea, vomiting, chest pain, shortness of breath, dizziness Review of Systems Review of Systems: All systems reviewed & are unremarkable except as noted in Subjective Physical Exam Physical Exam: Physical Exam: Vitals signs as noted above General Appearance:Moderately built and nourished, no apparent distress Head: normocephalic, Atraumatic Eyes: normal inspection, EOMI Neck: supple, Trachea midline Respiratory/Chest: Normal breath sounds, CTA, No accessory muscle use Cardiovascular: S1, S2, No murmur Abdomen/GI:Soft, no tender, Bowel sounds present Extremities/Musculoskeletal:normal inspection, no edema Neurologic/Psych:AAOX3, grossly no focal neurological deficits Skin: normal color, warm Results & Data Results & Data ([facility]) Vital Signs (Past 12 Hours) Vital Signs Temp Pulse Resp BP Pulse Ox 10/17/21 07:51 36.2 C L 89 18 155/84 H 90 Laboratory Results Short CBC 10/17/21 Range/Units 06:00 WBC 9.38 (4.8-10.8) K/uL Hgb 15.0 (14.0-18.0) g/dL Hct 43.0 (42-52) % Plt Count 186 (130-400) K/uL BMP 10/17/21 06:00 Sodium 136 Potassium 3.5 Chloride 102 Carbon Dioxide 26 BUN 8 Creatinine 0.76 Glucose 119 H Calcium 8.2 L Liver Function 10/17/21 Range/Units 06:00 Total Bilirubin 8.8 H (0.2-1.0) mg/dl AST 292 H (13-39) U/L ALT 635 H (7-52) U/L Alkaline Phosphatase 132 H (34-104) U/L Albumin 3.6 (3.4-5.0) gm/dl (1) Pancreatitis Acute pancreatitis complication: unspecified Chronicity: acute Pancreatitis type: unspecified pancreatitis type Qualified Code(s): K85.90 - Acute pancreatitis without necrosis or infection, unspecified
--- NOTE | 2021-10-17 22:52 | Electrocardiogram Report ---
Test Reason : Blood Pressure : / mmHG Vent. Rate : 066 BPM Atrial Rate : 066 BPM P-R Int : 158 ms QRS Dur : 086 ms QT Int : 380 ms P-R-T Axes : 037 049 051 degrees QTc Int : 398 ms Normal sinus rhythm Normal ECG No previous ECGs available Confirmed by Nirav Blake ([id number]) on 10/17/2021 10:51:50 PM Referred By: REFERRED SELF Confirmed By:Nirav Blake
--- NOTE | 2021-10-17 22:54 | Electrocardiogram Report ---
Test Reason : Blood Pressure : / mmHG Vent. Rate : 065 BPM Atrial Rate : 065 BPM P-R Int : 140 ms QRS Dur : 074 ms QT Int : 380 ms P-R-T Axes : 022 048 045 degrees QTc Int : 395 ms Poor data quality, interpretation may be adversely affected Normal sinus rhythm Nonspecific T wave abnormality Abnormal ECG When compared with ECG of 15-OCT-2021 19:48, No significant change was found Confirmed by Nirav Blake ([id number]) on 10/17/2021 10:54:36 PM Referred By: REFERRED SELF Confirmed By:Nirav Blake
[2021-10-18] MEDS: PIPERACILLIN/TAZOBACTAM 3.375 GM in DEXTROSE 5% 100 ML IV SCH ×3 (04:02→19:41)
[2021-10-18] MEDS: LACTATED RINGER'S 1,000 ML IV SCH (04:52)
[2021-10-18 06:34] LABS: Albumin Globulin Ratio 1.3 (0.9-2); Albumin Level 3.5 gm/dl (3.4-5.0); BUN Creatinine Ratio 8.5 (10-20); Bilirubin,Total 7.8 mg/dl (0.2-1.0); Calcium 8.2 mg/dl (8.5-10.1); Creatinine Clr Calc Pharmacy 152.8 ml/min; Est GFR (African American) 131.3 ml/min; Est GFR (Non-African American) 113.3 ml/min; Globulin 2.8 gm/dl (2.5-4.0); Magnesium 1.7 mg/dl (1.7-2.4); Potassium 3.3 mmol/L (3.5-5.1); Total Protein 6.3 gm/dl (6.0-8.3)
[2021-10-18] MEDS: ENOXAPARIN INJ 40 MG/0.4 ML SYR SQ SCH (09:04)
--- NOTE | 2021-10-18 09:47 | XRay Report ---
XR chest 1V portable CLINICAL HISTORY: Hypoxia TECHNIQUE: Single frontal radiograph of the chest was obtained. Comparison: Comparison is made to chest radiograph 10/15/2021 FINDINGS: No lines and tubes are seen. The cardiomediastinal silhouette is normal. Left lung base airspace opac ity is seen. No evidence of pleural effusion or pneumothorax. IMPRESSION: Left lung base airspace opacities favored to represent atelectasis with or without superimposed aspir ation/pneumonia. ACT 112: Negative or not required by law. Electronically signed by: Efren Mcfadden M.D. 10/18/2021 9:46 AM
[2021-10-18] MEDS: POTASSIUM CHLORIDE / WTR 10 MEQ/100 ML PLCT IV SCH ×2 (10:56→12:09)
--- NOTE | 2021-10-18 12:03 | Surgery Progress Note ---
Date of Service October 18, 2021 Assessment & Plan (1) Pancreatitis: (2) Elevated LFTs: Plan: 46-year-old gentleman presents with pancreatitis most likely from a gallstone, as well as elevated LFTs suggestive of choledocholithiasis. He may have reactive cholecystitis as well. -afebrile, vss - t. bili and LFTS still elevated but slightly improved - ERCP scheduled for today Plan: Will plan for laparoscopic cholecystectomy tomorrow by Dr. Tan. Dr. Tan briefly discussed procedure and restrictions today and will obtain consent tomorrow keep NPO for ERCP today Can have clear liquids post ERCP if okay with GI NPO after midnight Continue current medical management Repeat am labs Dr. Tan was present during my examination and agrees with above. Admission and Anticipated Discharge Date Admission Date: October 15, 2021 Subjective feeling better today not much abdominal pain, more back pain from lying in this bed for 4 days tolerated clear liquids yesterday no n,v Physical Exam Constitutional: WD/WN, vitals as above no acute distress and not ill appe aring Neck: normal visual inspection and trachea midline Gastrointestinal (Abdomen): Inspection/Auscultation: abdomen normal to inspection; abdomen not distended Percussion/Palpation: abdomen soft; abdomen nontender, no guarding and abdomen not rigid Skin: no rashes, warm and dry Psychiatric: A+Ox3, euthymic affect Results & Data ([facility]) Vital Signs (Past 12 Hours) Vital Signs Temp Pulse Resp BP Pulse Ox 10/18/21 09:14 92 10/18/21 07:29 36.8 C 83 16 155/87 H 94 Laboratory Results 10/18/21 Range/Units 05:30 Sodium 136 (136-145) mmol/L Potassium 3.3 L (3.5-5.1) mmol/L Chloride 101 (98-107) mmol/L Carbon Dioxide 26 (21-32) mmol/L Anion Gap 9 (3-11) BUN 6 (6-23) mg/dl Creatinine 0.71 (0.6-1.4) mg/dl Est Cr Clr Drug Dosing 152.8 ml/min Est GFR ( Amer) 131.3 ml/min Est GFR (Non-Af Amer) 113.3 ml/min BUN/Creatinine Ratio 8.5 L (10-20) Glucose 120 H (70-99(Fasting)) mg/dl Calcium 8.2 L (8.5-10.1) mg/dl Magnesium 1.7 (1.7-2.4) mg/dl Total Bilirubin 7.8 H (0.2-1.0) mg/dl AST 118 H (13-39) U/L ALT 401 H (7-52) U/L Alkaline Phosphatase 124 H (34-104) U/L Total Protein 6.3 (6.0-8.3) gm/dl Albumin 3.5 (3.4-5.0) gm/dl Globulin 2.8 (2.5-4.0) gm/dl Albumin/Globulin Ratio 1.3 (0.9-2) (1) Pancreatitis Acute pancreatitis complication: unspecified Chronicity: acute Pancreatitis type: unspecified pancreatitis type Qualified Code(s): K85.90 - Acute pancreatitis without necrosis or infection, unspecified
[2021-10-18] MEDS ORDERED: ATROPINE SULFATE 0.1 MG/ML 10ML SYR IV PRN (13:35)
[2021-10-18] MEDS ORDERED: ONDANSETRON INJ 2 MG/ML 2 ML VIAL IV PRN (13:35)
[2021-10-18] MEDS ORDERED: PROMETHAZINE HCL 12.5 MG in SODIUM CHLORIDE 0.9% 50 ML IV PRN (13:35)
[2021-10-18] MEDS ORDERED: KETOROLAC 30 MG/ML VIAL IV PRN (13:35)
[2021-10-18] MEDS ORDERED: LABETALOL HCL IV 5 MG/ML 20ML IV PRN (13:35)
[2021-10-18] MEDS ORDERED: fentaNYL citrate 100 MCG/2 ML VIAL IV PRN (13:35)
[2021-10-18] MEDS ORDERED: DEXAMETHASONE SOD INJ 4 MG/ML VIAL ONE (13:44)
[2021-10-18] MEDS ORDERED: fentaNYL citrate 100 MCG/2 ML VIAL ONE (13:44)
[2021-10-18] MEDS ORDERED: ONDANSETRON INJ 2 MG/ML 2 ML VIAL ONE (13:44)
[2021-10-18] MEDS ORDERED: MIDAZOLAM HCL 1 MG/ML 2ML VIAL ONE (13:44)
[2021-10-18] MEDS ORDERED: PROPOFOL IV EMULSION 10 MG/ML 20 ML VIAL IV ONE (13:44)
[2021-10-18] MEDS ORDERED: LIDOCAINE 2% 2 ML VIAL/AMP(20MG/ML) INFIL ONE (13:44)
[2021-10-18] MEDS ORDERED: SUCCINYLCHOLINE CHLORIDE 20 MG/ML 10 ML VIAL IV ONE (13:45)
--- NOTE | 2021-10-18 13:54 | History & Physical Bridge Note ---
Date of Service October 18, 2021 History & Physical Bridge Note I have examined the patient, reviewed the History & Physical and in the interval since the performance of the History & Physical I have noted the following changes of clinical significance: no changes noted. ERCP planned for today to evaluate the patient's history of gallstone pancreatitis and elevated bilirubin. We have discussed the risks and benefits to include bleeding, infection, perforation, pain, failed biliary cannulation and need for follow-up studies. Given the patient's high bilirubin he is at high pretest probability for choledocholithiasis, thus we will proceed directly to ERCP this afternoon
[2021-10-18] MEDS ORDERED: INDOMETHACIN 50 MG SUPP PR ONE (13:55)
--- NOTE | 2021-10-18 14:09 | Hospitalist Progress Note ---
Date of Service October 18, 2021 Assessment & Plan (1) Pancreatitis: Plan: Acute pancreatitis Choledocholithiasis Transaminitis --CT ABD:Findings are compatible with acute pancreatitis with reactive cholecystitis. Primary cholecystitis is considered less likely. No wall off fluid collection or necrosis is seen. --MRCP:No biliary ductal dilatation. No common bile duct calculi identified. Apparent irregularity/extrinsic narrowing of the mid common bile duct likely artifactual or related to mass effect on the common bile duct by the edematous pancreas. Cholelithiasis. Small amount of pericholecystic fluid, probably related to acute pancreatitis. Peripancreatic fluid extending into the anterior pararenal spaces. Associated perihepatic and perisplenic fluid. The findings represent an acute pancreatitis. No peripancreatic fluid collection. --S/P ERCP: Choledocholithiasis was found. Complete removal was accomplished by biliary sphincterotomy and balloon extraction. A biliary sphincterotomy was performed. The biliary tree was swept. One biliary stent was placed into the common bile duct. One pancreatic stent was placed into the ventral pancreatic duct. Indomethacin given to decrease risk of post-ERCP pancreatitis. --Avoid aspirin, NSAIDs for 1 week --Needs repeat ERCP in 6 weeks for stent removal -- Blood cultures : No growth to date --Lipase [id number] Continue Zosyn Continue gentle IV fluids Appreciate GI, surgery input Planned for cholecystectomy likely tomorrow Clear liquid diet today N.p.o. after midnight Hyperglycemia HbA1C: 5.5 Situational hypertension BP Stable Monitor DVT Px: Lovenox SQ Code Status Full code Admission and Anticipated Discharge Date Admission Date: October 15, 2021 Subjective Patient is seen and examined at bedside Doing well today No new complaints Had ERCP earlier today Dens any Abdominal pain, nausea, vomiting Discussed with Surgery today Also denies any chest pain, shortness of breath, dizziness Review of Systems Review of Systems: All systems reviewed & are unremarkable except as noted in Subjective Physical Exam Physical Exam: Physical Exam: Vitals signs as noted above General Appearance:Moderately built and nourished, no apparent distress Head: normocephalic, Atraumatic Eyes: normal inspection, EOMI Neck: supple, Trachea midline Respiratory/Chest: Normal breath sounds, CTA, No accessory muscle use Cardiovascular: S1, S2, No murmur Abdomen/GI:Soft, no tender, Bowel sounds present Extremities/Musculoskeletal:normal inspection, no edema Neurologic/Psych:AAOX3, grossly no focal neurological deficits Skin: normal color, warm, + Jaundice Results & Data Results & Data ([facility]) Vital Signs (Past 12 Hours) Vital Signs Temp Pulse Pulse Resp BP Pulse Ox 10/18/21 13:34 37.6 C H 86 20 171/92 H 93 10/18/21 09:14 92 10/18/21 07:29 36.8 C 83 16 155/87 H 94 Laboratory Results [facility] 10/18/21 05:30 Sodium 136 Potassium 3.3 L Chloride 101 Carbon Dioxide 26 BUN 6 Creatinine 0.71 Glucose 120 H Calcium 8.2 L Liver Function 10/18/21 Range/Units 05:30 Total Bilirubin 7.8 H (0.2-1.0) mg/dl AST 118 H (13-39) U/L ALT 401 H (7-52) U/L Alkaline Phosphatase 124 H (34-104) U/L Albumin 3.5 (3.4-5.0) gm/dl (1) Pancreatitis Acute pancreatitis complication: unspecified Chronicity: acute Pancreatitis type: unspecified pancreatitis type Qualified Code(s): K85.90 - Acute pancreat itis without necrosis or infection, unspecified
[2021-10-18] MEDS ORDERED: KETOROLAC 30 MG/ML VIAL ONE (14:23)
--- NOTE | 2021-10-18 14:58 | GI REPORT ---
Patient Name: Bakari More Procedure Date: 10/18/2021 1:59 PM Date of : 1975 Admit Type: Inpatient Age: 46 Gender: Male Attending MD: Arian Hamm DO Procedure: ERCP Providers: Arian Hamm DO Referring MD: Tima Duckworth Md, Archie Mendez Md Indications: Abdominal pain of suspected biliary origin, Jaundice, Elevated liver enzymes Medicines: General Anesthesia Complications: No immediate complications. Estimated blood loss: Minimal. Estimated Blood Loss: Estimated blood loss was minimal. Procedure: Pre-Anesthesia Assessment: - Prior to the procedure, a History and Physical was performed, and patient medications, allergies and sensitivities were reviewed. The patient's tolerance of previous anesthesia was reviewed. - The risks and benefits of the procedure and the sedation options and risks were discussed with the patient. All questions were answered and informed consent was obtained. - Patient identification and proposed procedure were verified prior to the procedure by the physician, the nurse and the gis mapping technician. The procedure was verified in the pre-procedure area in the procedure room. - Pre-procedure physical examination revealed no contraindications to sedation. - ASA Grade Assessment: II - A patient with mild systemic disease. - After reviewing the risks and benefits, the patient was deemed in satisfactory condition to undergo the procedure. - The anesthesia plan was to use general anesthesia. - Immediately prior to administration of medications, the patient was re-assessed for adequacy to receive sedatives. - The heart rate, respiratory rate, oxygen saturations, blood pressure, adequacy of pulmonary ventilation, and response to care were monitored throughout the procedure. - The physical status of the patient was re-assessed after the procedure. After obtaining informed consent, the scope was passed under direct vision. Throughout the procedure, the patient's blood pressure, pulse, and oxygen saturations were monitored continuously. The Duodenoscope was introduced through the mouth, and advanced to the duodenum and used to inject contrast into the bile duct and ventral pancreatic duct. The ERCP was accomplished without difficulty. The patient tolerated the procedure well. Findings: The bryologist film was normal. The esophagus was successfully intubated under direct vision without detailed examination of the pharynx, larynx, and associated structures, and upper GI tract. The upper GI tract was grossly normal. The major papilla was normal. The ventral pancreatic duct was inadvertently cannulated with the short-nosed traction sphincterotome and guidewire without any complications. The bile duct was deeply cannulated with the short-nosed traction sphincterotome and guidewire. Contrast was injected. I personally interpreted the bile duct images. Contrast extended to the hepatic ducts. The biliary orifice was stenotic. This appeared benign. Biliary sphincterotomy was made with a monofilament Fusion OMNI sphincterotome using ERBE electrocautery. There was no post-sphincterotomy bleeding. To discover objects, the biliary tree was swept with an 11.5 mm balloon starting at the bifurcation. Two stones were removed. No stones remained. One 10 Fr by 7 cm biliary stent with a single external flap and a single internal flap was placed 7 cm into the common bile duct. Bile flowed through the stent. The stent was in good position. One 5 Fr by 7 cm pancreatic stent with a full external pigtail and no internal flaps was placed 7 cm into the ventral pancreatic duct. Clear fluid flowed through the stent. The stent was in good position. The endoscope was withdrawn from the patient. The total fluoroscopy exposure time was 42 seconds. The endoscope was withdrawn from the patient. Indomethacin 100 mg was given via suppository to decrease the risk of post-ERCP pancreatitis (PEP). Impression: - Choledocholithiasis was found. Complete removal was accomplished by biliary sphincterotomy and balloon extraction. - A biliary sphincterotomy was performed. - The biliary tree was swept. - One biliary stent was placed into the common bile duct. - One pancreatic stent was placed into the ventral pancreatic duct. - Indomethacin given to decrease risk of post-ERCP pancreatitis. Recommendation: - Avoid aspirin and nonsteroidal anti-inflammatory medicines for 1 week. - Repeat ERCP in 6 weeks to remove stent. - Cholecystectomy per General Surgery. Arian Hamm D.O. Arian Hamm DO 10/18/2021 2:58:34 PM This report has been signed electronically. Note Initiated On: 10/18/2021 1:59 PM Number of Addenda: 0 I attest to the content of the Intraoperative Record and orders documented therein, exceptions below {[id number]}
--- NOTE | 2021-10-18 15:01 | Communication Note ---
Date of Service: October 18, 2021 The patient underwent ERCP this afternoon for treatment of gallstone pancreatitis. He was found to have evidence of papillary stenosis and 2 small stones within the common bile duct. A prophylactic pancreatic stent was placed, in addition a biliary stent was placed. Recommendations Patient may have clear liquids Avoid nonsteroidals for 1 week Cholecystectomy per general surgery Repeat ERCP for stent removal in 6 to 8 weeks Please call with any questions or concerns, GI to sign off
--- NOTE | 2021-10-18 15:01 | Post Operative Brief Note ---
Immediate Post Op Note v1 Date of Surgery October 18, 2021 Pre & Post Diagnosis Operation Date: 10/17/21 09:30 <No data on this case meets the specified criteria> Operation Date: 10/18/21 07:50 Pre-Op Diagnosis: PANCREATITIS, CHOLECYSTITIS Post-Op Diagnosis: CBD stones / stricture I identified the patient and participated in the time-out.: Yes Procedure Operation Date: 10/18/21 07:50 Actual Procedures p Endoscopic Retrograde Cholangiopancreato - Arian Hamm DO > Surgeon Arian Hamm DO Vp Sales none Estimated Blood Loss 0 Findings Consistent with Post-Op Diagnosis
--- NOTE | 2021-10-18 15:09 | Anesthesiology Progress Note ---
Date of Service October 18, 2021 Anesthesia Post Procedure Vital Signs Vital Signs: Temp Pulse Pulse Pulse Resp BP Pulse Ox 10/18/21 15:05 94 H 18 132/84 92 10/18/21 14:55 95 H 18 138/80 91 10/18/21 14:48 36.5 C 94 H 24 125/86 91 10/18/21 13:34 37.6 C H 86 20 171/92 H 93 10/18/21 09:14 92 10/18/21 07:29 36.8 C 83 16 155/87 H 94 10/17/21 23:51 18 93 10/17/21 23:45 20 88 L 10/17/21 22:32 36.8 C 80 14 176/95 H 92 10/17/21 19:44 37.2 C 88 16 161/85 H 92 10/17/21 16:00 36.8 C 91 H 18 160/88 H 90 Pain Intensity Head: Pain Intensity: 4 Transfer of Care Handoff Completed per policy Notes Mental Status: alert / awake / arousable Patient Amnestic to Procedure: Yes Nausea / Vomiting: adequately controlled Pain: adequately controlled Airway Patency, RR, SpO2: stable & adequate BP & HR: stable & adequate Hydration State: stable & adequate Anesthetic Complications: no major complications apparent
--- NOTE | 2021-10-18 17:07 | Fluoroscopy Report ---
[place] ERCP biliary ductal CLINICAL HISTORY: ERCP IN OR COMPARISON STUDY: None FLUOROSCOPY TIME: 42 seconds. FLUOROSCOPIC IMAGES: 31 FINDINGS: A wire was placed into the common bile duct and ERCP was performed intraoperatively. IMPRESSION: Status post intraoperative ERCP. ACT 112: Negative or not required by law. Electronically signed by: Erlin Rosales M.D. 10/18/2021 5:05 PM
[2021-10-19] MEDS: LACTATED RINGER'S 1,000 ML IV SCH ×2 (00:13→20:05)
[2021-10-19] MEDS: PIPERACILLIN/TAZOBACTAM 3.375 GM in DEXTROSE 5% 100 ML IV SCH ×3 (03:47→20:04)
[2021-10-19 08:14] LABS: Hematocrit (blood only) 38.9 % (42-52); Hemoglobin 13.6 g/dL (14.0-18.0); Mean Corpuscular Hemoglobin 30.5 pg (25-34); Mean Corpuscular Volume 87.2 fL (80-100); Mean Platelet Volume 9.5 fL (7.4-10.4); Platelet Count 189 K/uL (130-400); RDW Coefficient of Variation 12.8 % (11.5-14.5); RDW Standard Deviation 40.8 fL (36.4-46.3); Red Blood Count 4.46 M/uL (4.7-6.1); White Blood Count 10.07 K/uL (4.8-10.8)
[2021-10-19] MEDS: ENOXAPARIN INJ 40 MG/0.4 ML SYR SQ SCH (08:28)
[2021-10-19 08:29] LABS: Albumin Globulin Ratio 1.3 (0.9-2); Albumin Level 3.6 gm/dl (3.4-5.0); Calcium 8.8 mg/dl (8.5-10.1); Creatinine Clr Calc Pharmacy 174.9 ml/min; Est GFR (African American) 138.9 ml/min; Est GFR (Non-African American) 119.8 ml/min; Globulin 2.8 gm/dl (2.5-4.0); Magnesium 1.9 mg/dl (1.7-2.4); Potassium 3.8 mmol/L (3.5-5.1); Total Protein 6.4 gm/dl (6.0-8.3)
--- NOTE | 2021-10-19 09:45 | History & Physical Bridge Note ---
Date of Service October 19, 2021 History & Physical Bridge Note I have examined the patient, reviewed the History & Physical and in the interval since the performance of the History & Physical I have noted the following changes of clinical significance: no changes noted
--- NOTE | 2021-10-19 09:51 | Surgery Progress Note ---
Date of Service October 19, 2021 Assessment & Plan (1) Pancreatitis: (2) Elevated LFTs: Plan: 46-year-old gentleman presents with pancreatitis most likely from a gallstone, as well as elevated LFTs suggestive of choledocholithiasis. He may have reactive cholecystitis as well. -afebrile, vss - t. bili and LFTS still elevated but slightly improved - ERCP scheduled for today Plan: Will plan for laparoscopic cholecystectomy tomorrow by Dr. Tan. Dr. Tan briefly discussed procedure and restrictions today and will obtain consent tomorrow keep NPO for ERCP today Can have clear liquids post ERCP if okay with GI NPO after midnight Continue current medical management Repeat am labs Dr. Tan was present during my examination and agrees with above. 10/19/2021 9:48AM, Dr. Tan S/P ERCP, doing better, I recommend to do laparoscopic cholecystectomy, possible open or cholangiogram, D/w benefits, risks and alternatives of the surgery, the risks - infection, bleeding, injury other organs, bile leak, incisional hernia, pt understood, he agrees with surgery, he signed informed consent, I answered all questions, Admission and Anticipated Discharge Date Admission Date: October 15, 2021 Subjective Patient is seen and examined at bedside Doing well today No new complaints Had ERCP earlier today Dens any Abdominal pain, nausea, vomiting Discussed with Surgery today Also denies any chest pain, shortness of breath, dizziness 10/19/2021 9:46AM, DR. Tan S/P ERCP, pt feels better, no significant abdominal pain, no nausea, no vomiting, no fever, I reviewed ERCP report, Physical Exam Constitutional: WD/WN, vitals as above Eyes: PERRL, conjunctivae normal, anicteric sclerae Neck: trachea midline, no thyromegaly Respiratory: normal respiratory effort, lungs clear to auscultation Cardiovascular: RRR, no murmur, no edema Gastrointestinal (Abdomen): mild tenderness at RUQ , no rebound pain, no distend, BS _, Musculoskeletal: no cyanosis or clubbing, extremities motor strength 5/5 Neurologic: patellar DTR's 2+ bilat, sensation intact Psychiatric: A+Ox3, euthymic affect Results & Data ([facility]) Vital Signs (Past 12 Hours) Vital Signs Temp Pulse Resp BP Pulse Ox 10/19/21 07:32 36.6 C 67 18 138/85 94 Laboratory Results Abnormal lab results 10/19/21 10/19/21 Range/Units 07:02 07:02 RBC 4.46 L (4.7-6.1) M/uL Hgb 13.6 L (14.0-18.0) g/dL Hct 38.9 L (42-52) % BUN/Creatinine Ratio 21.0 H (10-20) Glucose 130 H (70-99(Fasting)) mg/dl Total Bilirubin 8.0 H (0.2-1.0) mg/dl AST 71 H (13-39) U/L ALT 292 H (7-52) U/L Alkaline Phosphatase 128 H (34-104) U/L (1) Pancreatitis Acute pancreatitis complication: unspecified Chronicity: acute Pancreatitis type: unspecified pancreatitis type Qualified Code(s): K85.90 - Acute pancreatitis without necrosis or infection, unspecified
[2021-10-19] MEDS ORDERED: ONDANSETRON INJ 2 MG/ML 2 ML VIAL IV PRN (09:57)
[2021-10-19] MEDS ORDERED: fentaNYL citrate 100 MCG/2 ML VIAL IV PRN (09:57)
[2021-10-19] MEDS ORDERED: HYDROmorphone INJ 1 MG/ML SYRINGE IV PRN (09:57)
[2021-10-19] MEDS ORDERED: ATROPINE SULFATE 0.1 MG/ML 10ML SYR IV PRN (09:57)
[2021-10-19] MEDS ORDERED: ePHEDrine sulfate 50 MG/ML AMP IV PRN (09:57)
--- NOTE | 2021-10-19 10:14 | Anesthesiology Consultation ---
Date of Service October 19, 2021 Assessment & Plan (1) Encounter for pre-operative examination: Chart Review Chart Review: Acceptable Risk for Surgery and Patient NOT seen in Pre Admission Testing Consults Requested none History Surgery Operation Date: 10/17/21 09:30 Proposed Procedures p Endoscopic Retrograde Cholangiopancreato - Calvin Wills MD Operation Date: 10/18/21 07:50 Proposed Procedures p Endoscopic Retrograde Cholangiopancreatogram - Arian Hamm DO Operation Date: 10/19/21 07:00 Proposed Procedures p Laparoscopic Cholecystectomy - Judith Tan MD Height/Weight Height: 6 ft 2 in Weight: 98.3 kg Allergies Allergy/AdvReac Type Severity Reaction Status Date / Time No Known Allergies Allergy Unverified 10/15/21 21:35 Medications Home Medications Medication Instructions Recorded Confirmed Last Taken No Known Home Medications 10/15/21 10/15/21 Unknown Active Medications Generic Name Dose Route Start Last Admin Trade Name Freq PRN Reason Stop Dose Admin Acetaminophen 325 mg 10/16/21 00:15 10/17/21 13:53 Acetaminophen 325 Mg Tab PO 11/15/21 00:14 325 mg Q6H PRN Administration Mild Pain Enoxaparin Sodium 40 mg 10/16/21 09:00 10/19/21 08:28 Enoxaparin Inj 40 Mg/0.4 Ml Syr SQ 11/15/21 08:59 Not Given QAM FORTINO Piperacillin Sod/Tazobactam 115 mls @ 28.75 mls/hr 10/16/21 04:00 10/19/21 08:21 Sod 3.375 gm/ Dextrose IV 10/26/21 03:59 Infused Q8H FORTINO Infusion Protocol Lactated Ringer's 1,000 mls @ 50 mls/hr 10/17/21 15:00 10/19/21 00:13 Lr IV 11/16/21 14:59 50 mls/hr .Q20H FORTINO Administration NPO Date Last Intake of Fluids: 10/18/21 Time Last Intake of Fluids: 22:00 Last Intake of Fluids Comment: Ice chips earlier Date Last Intake of Solids: 10/18/21 Time Last Intake of Solids: 22:00 Last Intake of Solids Comment: 2 days Past Medical History Medical History Elevated LFTs No pertinent past medical history Pancreatitis Exercise / Class Metabolic Activity II 4-5 Yardwork/Stairs/Walk up hill Past Surgical History Surgical History No pertinent past surgical history Past Anesthesia History No Hx of Anesthesia Complications and No Family Hx of Anesthesia Complications History of PONV No Hx of PONV and No Hx of Motion Sickness Social History Smoking Status: Never smoker Hx Alcohol Use: Yes Alcohol type: beer alcohol intake frequency: holidays/special occasions only Hx Substance Use: No substance use type: does not use Physical Exam Vital Signs Last Vital Signs Temp 36.7 C 10/19/21 10:09 Pulse 79 10/19/21 10:09 Resp 18 10/19/21 10:09 BP 156/95 H 10/19/21 10:09 Pulse Ox 94 10/19/21 10:09 Testing Laboratory Results 10/19/21 07:02 10/19/21 07:02 Hemoglobin A1c 5.5 % (4.5-5.6) 10/15/21 19:55 10/16/21 14:56 Aerobic Blood Culture - Preliminary Blood No growth in Aerobic bottle after 48 hours. Anaerobic Blood Culture - Preliminary No growth in Anaerobic bottle after 48 hours. 10/16/21 15:06 Aerobic Blood Culture - Preliminary Blood No growth in Aerobic bottle after 48 hours. Anaerobic Blood Culture - Preliminary No growth in Anaerobic bottle after 48 hours. Electrocardiogram Date: 10/15/21 Findings: + NSR @ (65) and + NSST changes Chest X-Ray Date: 10/15/21 Findings: + NAD
[2021-10-19] MEDS ORDERED: LARYING-O-JET KIT (LTA) ONE (10:16)
[2021-10-19] MEDS ORDERED: LIDOCAINE 2% MPF LOCAL 5 ML VIAL INFIL ONE (10:16)
[2021-10-19] MEDS ORDERED: ONDANSETRON INJ 2 MG/ML 2 ML VIAL ONE (10:16)
[2021-10-19] MEDS ORDERED: ROCURONIUM BROMIDE 10 MG/ML 5 ML VIAL IV ONE ×3 (10:16→11:47)
[2021-10-19] MEDS ORDERED: KETOROLAC 30 MG/ML VIAL ONE (10:16)
[2021-10-19] MEDS ORDERED: DEXAMETHASONE SOD INJ 4 MG/ML VIAL ONE (10:16)
[2021-10-19] MEDS ORDERED: NEOSTIGMINE METHYLSULFATE 1 MG/ML 10ML VIAL ONE (10:16)
[2021-10-19] MEDS ORDERED: PROPOFOL IV EMULSION 10 MG/ML 20 ML VIAL IV ONE (10:16)
[2021-10-19] MEDS ORDERED: GLYCOPYRROLATE 0.2 MG/ML VIAL ONE (10:16)
[2021-10-19] MEDS ORDERED: fentaNYL citrate 100 MCG/2 ML VIAL ONE (10:16)
[2021-10-19] MEDS ORDERED: MIDAZOLAM HCL 1 MG/ML 2ML VIAL ONE (10:16)
[2021-10-19] MEDS ORDERED: BUPIVACAINE 0.5 % 5 MG/1 ML MPF 30ML VIAL INJ ONE (11:10)
[2021-10-19] MEDS ORDERED: LIDOCAINE 1% LOCAL 20 ML VIAL INJ ONE (11:11)
[2021-10-19] MEDS ORDERED: BACITRACIN OINT 15 GM TUBE EXT ONE (11:17)
--- NOTE | 2021-10-19 11:26 | Hospitalist Progress Note ---
Date of Service October 19, 2021 Assessment & Plan (1) Pancreatitis: Plan: per Dr. Duckworth's notes with addendum: Acute pancreatitis Choledocholithiasis Transaminitis --CT ABD:Findings are compatible with acute pancreatitis with reactive cholecystitis. Primary cholecystitis is considered less likely. No wall off fluid collection or necrosis is seen. --MRCP:No biliary ductal dilatation. No common bile duct calculi identified. Apparent irregularity/extrinsic narrowing of the mid common bile duct likely artifactual or related to mass effect on the common bile duct by the edematous pancreas. Cholelithiasis. Small amount of pericholecystic fluid, probably related to acute pancreatitis. Peripancreatic fluid extending into the anterior pararenal spaces. Associated perihepatic and perisplenic fluid. The findings represent an acute pancreatitis. No peripancreatic fluid collection. --S/P ERCP: Choledocholithiasis was found. Complete removal was accomplished by biliary sphincterotomy and balloon extraction. A biliary sphincterotomy was performed. The biliary tree was swept. One biliary stent was placed into the common bile duct. One pancreatic stent was placed into the ventral pancreatic duct. Indomethacin given to decrease risk of post-ERCP pancreatitis. --Avoid aspirin, NSAIDs for 1 week --Needs repeat ERCP in 6 weeks for stent removal -- Blood cultures : No growth to date --Lipase [id number] Continue Zosyn Continue gentle IV fluids Appreciate GI, surgery input Planned for cholecystectomy likely tomorrow Clear liquid diet today N.p.o. after midnight 7/6 stable overall afebrile symptoms improving LFTs trending down for Cholecystectomy today continue Zosyn ff up with GI for removal of biliary and pancreatic duct stents in 6 weeks Hyperglycemia HbA1C: 5.5 Situational hypertension BP fluctuating occasionally mildly elevated Monitor DVT Px: Lovenox SQ Code Status Full code Disposition possible d/c home in 1-2 days Admission and Anticipated Discharge Date Admission Date: October 15, 2021 Subjective ff up for acute pancreatitis, etc seen resting in bed, comfortable in good spirits states he feels improved today overall abdominal discomfort mostly resolving no nausea/vomiting, fever/chills no cough, dyspnea, chest pain no other symptoms Review of Systems Review of Systems: all noted and negative except for above Physical Exam Physical Exam: General- oriented x 3, not in distress, speaks in sentences with no effort or accessory muscle use Eyes- anicteric Neck- no JVD Lungs- mild crackles on the left base Heart- normal rate, regular rhythm; no murmurs Abdomen- normal bowel sounds, nondistended, soft, nontender Extremities- no pretibial edema, no calf tenderness Neuro- alert, oriented x 3; no gross focal neurologic deficits Skin- warm & dry Results & Data Results & Data ([facility]) Vital Signs (Past 12 Hours) Vital Signs Temp Pulse Resp BP Pulse Ox 10/19/21 10:09 36.7 C 79 18 156/95 H 94 10/19/21 07:32 36.6 C 67 18 138/85 94 all noted and reviewed including below (1) Pancreatitis Acute pancreatitis complication: unspecified Chronicity: acute Pancreatitis type: unspecified pancreatitis type Qualified Code(s): K85.90 - Acute pancreatitis without necrosis or infection, unspecified
--- NOTE | 2021-10-19 12:41 | Post Operative Brief Note ---
Immediate Post Op Note v1 Date of Surgery October 19, 2021 Pre & Post Diagnosis Operation Date: 10/17/21 09:30 <No data on this case meets the specified criteria> Operation Date: 10/18/21 07:50 Pre-Op Diagnosis: PANCREATITIS, CHOLECYSTITIS Post-Op Diagnosis: Pancreatitis Operation Date: 10/19/21 07:00 Pre-Op Diagnosis: Pancreatitis, Cholecysitis Post-Op Diagnosis: Pancreatitis, Cholecysitis I identified the patient and participated in the time-out.: Yes Procedure Operation Date: 10/17/21 09:30 <No data on this case meets the specified criteria> Operation Date: 10/18/21 07:50 Actual Procedures p Endoscopic Retrograde Cholangiopancreato - Arian Hamm DO Operation Date: 10/19/21 07:00 Actual Procedures p Laparoscopic Cholecystectomy(Not Applicable) - Judith Tan MD Surgeon Judith Tan MD Belting And Webbing Inspector surgical attendant Estimated Blood Loss 20 Findings Consistent with Post-Op Diagnosis significant inflammation on gallbladder wall, gallstone at cyst duct, Fluids 1000ml Specimens gallbladder Anesthesia Type General Complications none Disposition Accompanied Patient To Recovery: Yes
--- NOTE | 2021-10-19 14:55 | Anesthesiology Progress Note ---
Date of Service October 19, 2021 Anesthesia Post Procedure Vital Signs Vital Signs: Temp Pulse Pulse Resp BP Pulse Ox 10/19/21 14:04 36.9 C 85 15 147/85 H 92 10/19/21 13:35 36.8 C 88 15 124/74 94 10/19/21 13:25 36.8 C 85 13 130/70 91 10/19/21 13:15 76 10 L 128/80 91 10/19/21 13:05 71 10 L 129/76 89 L 10/19/21 12:55 79 11 L 128/78 89 L 10/19/21 12:49 36.5 C 83 12 119/71 94 10/19/21 10:09 36.7 C 79 18 156/95 H 94 10/19/21 07:32 36.6 C 67 18 138/85 94 10/18/21 19:32 36.7 C 80 18 147/90 H 93 10/18/21 18:25 91 10/18/21 16:16 36.8 C 79 16 148/84 H 91 10/18/21 15:48 37.0 C 85 16 144/84 H 91 10/18/21 15:28 37.2 C 85 16 132/90 91 10/18/21 15:15 36.4 C L 93 H 18 134/88 92 10/18/21 15:05 94 H 18 132/84 92 10/18/21 14:55 95 H 18 138/80 91 Pain Intensity Head: Pain Intensity: 0 Transfer of Care Handoff Completed per policy Notes Mental Status: alert / awake / arousable and participated in evaluation Patient Amnestic to Procedure: Yes Nausea / Vomiting: adequately controlled Pain: adequately controlled Airway Patency, RR, SpO2: stable & adequate BP & HR: stable & adequate Hydration State: stable & adequate Anesthetic Complications: no major complications apparent and Pt Satisfied with anesthetic care Notes: Patient on O2 prior to surgery and plan to continue postop. No wheezes. Using ISB. Will ensure patient on cont pulse ox and NC oxygen on floor as before.
[2021-10-19] MEDS ORDERED: oxyCODONE HCL IR 5 MG TAB (IMMEDIATE RELEASE) PO PRN (15:34)
[2021-10-19] MEDS ORDERED: MoRPHine SULFATE 2 MG/ML CARP IV PRN (15:34)
--- NOTE | 2021-10-19 20:57 | Operative Report (OR) ---
DATE OF SERVICE: 10/19/2021 PREOPERATIVE DIAGNOSES: Acute cholecystitis, cholelithiasis. POSTOPERATIVE DIAGNOSES: Acute cholecystitis, cholelithiasis. OPERATION: Laparoscopic cholecystectomy. SURGEON: Judith Tan MD. ANESTHESIA: General. ESTIMATED BLOOD LOSS: About 10 mL. FINDINGS: Acute cholecystitis with cholelithiasis. COMPLICATIONS: None. INDICATIONS FOR PROCEDURE: This is a 46-year-old gentleman who was admitted to the hospital for acut e cholecystitis, cholelithiasis and common bile duct stone. The patient is a post stat ERCP with rem oval of common bile duct stone and I recommended to do a laparoscopic cholecystectomy, possible open, possible cholangiogram. I did talk to the patient about the benefit, risk, alternate procedure. I indicated the risks may include, but not limited to, such as bleeding, infection, injury to other org ans, bile leak, incisional hernia. The patient understands. He signed informed consent and I answer ed all questions. DETAILS OF PROCEDURE: After we identified the patient and verified the procedure, we brought the pat ient to the OR, put the patient in the supine position on the OR table. The patient received SCD on bilateral legs to prevent DVT. Also, patient received 3.375 grams of Zosyn IV for prophylactic antib iotic. The patient received general anesthesia without difficulty. The abdomen was prepped and drap ed in routine sterile fashion. After timeout, I injected the local anesthesia by using 1% lidocaine mixed with 0.5% Marcaine just above the umbilicus, then I made a small incision just above umbilicus, opened fascia, opened peritoneum. Under direct vision, put a Kelvin trocar in, connected to CO2 to create pneumoperitoneum, flow rate at 6 liters per minute, pressure not more than 14 mmHg. Once we got a nice pneumoperitoneum, we put a camera in, looked around the abdomen, it shows normal f inding on the liver; however, the gallbladder showed significant inflammation on the gallbladder wall , gallbladder wall thickening, edema, also significant omentum covering the gallbladder. Once we con firmed the diagnosis of acute cholecystitis, we put another two 5 mm trocars in the right upper quadr ant and one 12 trocar in the epigastric area. Once all trocars in, we peeled down the omental adhesi ons to the gallbladder and then we used the grasper to hold the base of gallbladder, put in the direc tion to the diaphragm, another grasper to hold the pouch of gallbladder, put a lateral to expose the triangle of Calot. The cystic duct was identified and mobilized. I put a 10 mm metal clips on the proximal cystic duct, one on the distal cystic duct, then used a scissor for transection of cystic duct; rechecked, no dorothy e leak. The cystic artery was identified and mobilized. I put two 5 mm metal clips on the proximal cystic artery, one on the distal cystic artery, then used a scissor for transection of cystic artery; rechecked, no active bleeding. Then, we used the Bovie to take down gallbladder from liver bed; rec hecked, no active bleeding, no bile leak. Then, we removed gallbladder through the catch bag. Then, we reinserted the Kelvin trocar in, connected to CO2 to create pneumoperitoneum, again looked a round the abdomen, no active bleeding, no bile leak from liver bed. Then, we removed all trocars und er direct vision. No active bleeding from the trocar site. Pneumoperitoneum was released, then I cl osed the umbilical incision fascial layer by using 0 Vicryl [id number] x2, closed subcutaneous l monica by using 2-0 Vicryl interruptedly, closed skin by using 4-0 Vicryl continuous running, closed th e epigastric incision fascial layer by using 0 Vicryl [id number] x2, closed subcutaneous layer b y using 2-0 Vicryl interruptedly, closed skin by using 4-0 Vicryl interruptedly, closed another two 5 mm trocar site of skin only by using 4-0 Vicryl. Then, we put the dressing on. The patient tolerated the procedure well. All instrument, needle and sponge counts were correct x2 a t the end of the case. The patient was transferred to recovery room in stable condition. The specim en was sent to pathology. After the procedure, I did talk to the patient about the OR finding and th e procedure we did, the patient understands. Job ID: [id number]
[2021-10-20] MEDS: PIPERACILLIN/TAZOBACTAM 3.375 GM in DEXTROSE 5% 100 ML IV SCH (03:53)
[2021-10-20] MEDS: ACETAMINOPHEN 325 MG TAB PO PRN (03:58)
[2021-10-20 07:12] LABS: Basophils # (auto) 0.01 K/uL (0-0.2); Basophils % (auto) 0.1 %; Hematocrit (blood only) 36.8 % (40.1-51.0); Hemoglobin 12.7 g/dl (14.0-18.0); Immature Granulocytes # (auto) 0.02 K/uL (0.00-0.02); Immature Granulocytes % (auto) 0.3 %; Lymphocytes # (auto) 0.92 K/uL (1.2-3.4); Lymphocytes % (auto) 11.8 %; Mean Corpuscular Hemoglobin 30.5 pg (25.0-34.0); Mean Corpuscular Hgb Conc 34.5 g/dL (32.0-36.0); Mean Corpuscular Volume 88.2 fL (80.0-100.0); Mean Platelet Volume 9.5 fL (9.4-12.4); Monocytes # (auto) 0.68 K/uL (0.24-0.82); Monocytes % (auto) 8.7 %; Neutrophils # (auto) 6.17 K/uL (1.4-6.5); Neutrophils % (auto) 79.1 %; Platelet Count 188 K/uL (130-400); RDW Coefficient of Variation 12.7 % (11.5-14.5); RDW Standard Deviation 40.5 fL (36.4-46.3); Red Blood Count 4.17 M/uL (4.63-6.08)
[2021-10-20 07:34] LABS: Albumin Globulin Ratio 1.3 (0.9-2); Albumin Level 3.4 gm/dl (3.4-5.0); BUN Creatinine Ratio 22.7 (10-20); Bilirubin,Total 3.8 mg/dl (0.2-1.0); Calcium 8.3 mg/dl (8.5-10.1); Creatinine Clr Calc Pharmacy 164.3 ml/min; Est GFR (African American) 135.3 ml/min; Est GFR (Non-African American) 116.8 ml/min; Globulin 2.7 gm/dl (2.5-4.0); Potassium 3.5 mmol/L (3.5-5.1); Total Protein 6.1 gm/dl (6.0-8.3)
[2021-10-20] MEDS: ENOXAPARIN INJ 40 MG/0.4 ML SYR SQ SCH (08:27)
--- NOTE | 2021-10-20 09:41 | Surgery Progress Note ---
Date of Service October 20, 2021 Assessment & Plan (1) Pancreatitis: (2) Elevated LFTs: Plan: POD # 1 s/p laparoscopic cholecystectomy POD # 2 s/p ERCP with biliary stent placement and pancreatic stent placement for choledocholithiasis -afebrile, vss - t. bili and LFTS improving - postop pain mild and controlled Plan: Doing well from surgical standpoint for discharge Advance to low fiber diet for lunch discharge instructions reviewed f/u surgery office in 2 weeks Rx sent for Oxycodone to pharmacy as needed for pain. Dr. Tan has seen patient and agrees with above Admission and Anticipated Discharge Date Admission Date: October 15, 2021 Subjective feeling well, mild postop pain, only took Tylenol at 4 am last night ambulating hallway no nausea or vomiting tolerating clear liquids no chest pain or shortness of breath urinating without difficulty ready to go home Physical Exam Constitutional: WD/WN, vitals as above no acute distress and not ill appearing Neck: normal visual inspection and trachea midline Respiratory: normal respiratory effort; no respiratory distress Gastrointestinal (Abdomen): Inspection/Auscultation: abdomen normal to inspection, + abdominal surgical incision (covered with dressings, spotting present at RUQ incision) and + hypoactive bowel sounds; abdomen not distended and + abnormal bowel sounds Percussion/Palpation: + abdomen tender (mild at incision sites) and abdomen soft; no guarding and abdomen not rigid Skin: no rashes, warm and dry no jaundice Psychiatric: A+Ox3, euthymic affect Results & Data ([facility]) Vital Signs (Past 12 Hours) Vital Signs Temp Pulse Resp BP Pulse Ox 10/20/21 07:16 36.6 C 76 16 153/92 H 95 10/20/21 04:01 36.5 C 60 18 156/91 H 92 10/19/21 22:28 36.6 C 63 18 155/92 H 94 Laboratory Results 10/20/21 10/20/21 Range/Units 06:54 06:54 WBC 7.80 (4.8-10.8) K/ul RBC 4.17 L (4.63-6.08) M/uL Hgb 12.7 L (14.0-18.0) g/dl Hct 36.8 L (40.1-51.0) % MCV 88.2 (80.0-100.0) fL MCH 30.5 (25.0-34.0) pg MCHC 34.5 (32.0-36.0) g/dL RDW Std Deviation 40.5 (36.4-46.3) fL RDW Coeff of Dawna 12.7 (11.5-14.5) % Plt Count 188 (130-400) K/uL MPV 9.5 (9.4-12.4) fL Immature Gran % (Auto) 0.3 % Neut % (Auto) 79.1 % Lymph % (Auto) 11.8 % Borden % (Auto) 8.7 % Eos % (Auto) 0.0 % Baso % (Auto) 0.1 % Neut # (Auto) 6.17 (1.4-6.5) K/uL Lymph # (Auto) 0.92 L (1.2-3.4) K/uL Borden # (Auto) 0.68 (0.24-0.82) K/uL Eos # (Auto) 0.00 (0-0.50) K/uL Baso # (Auto) 0.01 (0-0.2) K/uL Immature Gran # (Auto) 0.02 (0.00-0.02) K/uL Sodium 137 (136-145) mmol/L Potassium 3.5 (3.5-5.1) mmol/L Chloride 102 (98-107) mmol/L Carbon Dioxide 30 (21-32) mmol/L Anion Gap 5 (3-11) BUN 15 (6-23) mg/dl Creatinine 0.66 (0.6-1.4) mg/dl Est Cr Clr Drug Dosing 164.3 ml/min Est GFR ( Amer) 135.3 ml/min Est GFR (Non-Af Amer) 116.8 ml/min BUN/Creatinine Ratio 22.7 H (10-20) Glucose 119 H (70-99(Fasting)) mg/dl Calcium 8.3 L (8.5-10.1) mg/dl Total Bilirubin 3.8 H D (0.2-1.0) mg/dl AST 63 H (13-39) U/L ALT 226 H (7-52) U/L Alkaline Phosphatase 113 H (34-104) U/L Total Protein 6.1 (6.0-8.3) gm/dl Albumin 3.4 (3.4-5.0) gm/dl Globulin 2.7 (2.5-4.0) gm/dl Albumin/Globulin Ratio 1.3 (0.9-2) (1) Pancreatitis Acute pancreatitis complication: unspecified Chronicity: acute Pancreatitis type: unspecified pancreatitis type Qualified Code(s): K85.90 - Acute pancreatitis without necrosis or infection, unspecified
--- NOTE | 2021-10-20 10:26 | Hospitalist Progress Note ---
Date of Service October 20, 2021 Assessment & Plan (1) Pancreatitis: Plan: per previous provider: Acute pancreatitis Choledocholithiasis Transaminitis --CT ABD:Findings are compatible with acute pancreatitis with reactive cholecystitis. Primary cholecystitis is considered less likely. No wall off fluid collection or necrosis is seen. --MRCP:No biliary ductal dilatation. No common bile duct calculi identified. Apparent irregularity/extrinsic narrowing of the mid common bile duct likely artifactual or related to mass effect on the common bile duct by the edematous pancreas. Cholelithiasis. Small amount of pericholecystic fluid, probably related to acute pancreatitis. Peripancreatic fluid extending into the anterior pararenal spaces. Associated perihepatic and perisplenic fluid. The findings represent an acute pancreatitis. No peripancreatic fluid collection. --S/P ERCP: Choledocholithiasis was found. Complete removal was accomplished by biliary sphincterotomy and balloon extraction. A biliary sphincterotomy was performed. The biliary tree was swept. One biliary stent was placed into the common bile duct. One pancreatic stent was placed into the ventral pancreatic duct. Indomethacin given to decrease risk of post-ERCP pancreatitis. --Avoid aspirin, NSAIDs for 1 week --Needs repeat ERCP in 6 weeks for stent removal -- Blood cultures : No growth to date --Lipase [id number] Continue Zosyn while inpt Continue gentle IV fluids Appreciate GI, surgery input Now s/p cholecystectomy on 10/19/2021 tolerating Clear liquid diet , diet advanced, per surgery - may be DC home LFTs trending down ff up with GI for removal of biliary and pancreatic duct stents in 6 weeks Hyperglycemia HbA1C: 5.5 Situational hypertension BP fluctuating occasionally mildly elevated Monitor DVT Px: Lovenox SQ Code Status : Full code Disposition: plan to d/c home Admission and Anticipated Discharge Date Admission Date: October 15, 2021 Subjective Patient seen in follow-up of choledocholithiasis, reactive cholecystitis, acute pancreatitis Patient status post ERCP, cholecystectomy Tolerating clear liquid diet, diet advanced today, patient is eager to be discharged home today Discussed with surgery and the patient, if patient tolerates lunch, will be discharged and outpatient follow-up will be set up Denies any fevers, chills, chest pain, shortness of breath. He has minimal abdominal pain. No nausea or vomiting. Review of Systems Review of Systems: All systems reviewed & are unremarkable except as noted in Subjective Physical Exam Physical Exam: General- oriented x 3, not in distre ss, speaks in sent ences with no effo rt or accessory mu scle use Eyes- E PILAR, anicteric Ne ck- supple Lungs- mild crackles on the left base Hea rt- normal rate, r egular rhythm; no murmurs Abdomen- normal bowel sound s, nondistended, s oft, nontender Ex tremities- no pret ibial edema, no ca lf tenderness Marbin ro- alert, oriente d x 3; speech flue nt, moves extremit ies Skin- warm & dry Results & Data Results & Data ([facility]) Vital Signs (Past 12 Hours) Vital Signs Temp Pulse Resp BP Pulse Ox 10/20/21 07:16 36.6 C 76 16 153/92 H 95 10/20/21 04:01 36.5 C 60 18 156/91 H 92 10/19/21 22:28 36.6 C 63 18 155/92 H 94 Laboratory Results 10/20/21 10/20/21 Range/Units 06:54 06:54 WBC 7.80 (4.8-10.8) K/ul RBC 4.17 L (4.63-6.08) M/uL Hgb 12.7 L (14.0-18.0) g/dl Hct 36.8 L (40.1-51.0) % MCV 88.2 (80.0-100.0) fL MCH 30.5 (25.0-34.0) pg MCHC 34.5 (32.0-36.0) g/dL RDW Std Deviation 40.5 (36.4-46.3) fL RDW Coeff of Dawna 12.7 (11.5-14.5) % Plt Count 188 (130-400) K/uL MPV 9.5 (9.4-12.4) fL Immature Gran % (Auto) 0.3 % Neut % (Auto) 79.1 % Lymph % (Auto) 11.8 % Powell % (Auto) 8.7 % Eos % (Auto) 0.0 % Baso % (Auto) 0.1 % Neut # (Auto) 6.17 (1.4-6.5) K/uL Lymph # (Auto) 0.92 L (1.2-3.4) K/uL Powell # (Auto) 0.68 (0.24-0.82) K/uL Eos # (Auto) 0.00 (0-0.50) K/uL Baso # (Auto) 0.01 (0-0.2) K/uL Immature Gran # (Auto) 0.02 (0.00-0.02) K/uL Sodium 137 (136-145) mmol/L Potassium 3.5 (3.5-5.1) mmol/L Chloride 102 (98-107) mmol/L Carbon Dioxide 30 (21-32) mmol/L Anion Gap 5 (3-11) BUN 15 (6-23) mg/dl Creatinine 0.66 (0.6-1.4) mg/dl Est Cr Clr Drug Dosing 164.3 ml/min Est GFR ( Amer) 135.3 ml/min Est GFR (Non-Af Amer) 116.8 ml/min BUN/Creatinine Ratio 22.7 H (10-20) Glucose 119 H (70-99(Fasting)) mg/dl Calcium 8.3 L (8.5-10.1) mg/dl Total Bilirubin 3.8 H D (0.2-1.0) mg/dl AST 63 H (13-39) U/L ALT 226 H (7-52) U/L Alkaline Phosphatase 113 H (34-104) U/L Total Protein 6.1 (6.0-8.3) gm/dl Albumin 3.4 (3.4-5.0) gm/dl Globulin 2.7 (2.5-4.0) gm/dl Albumin/Globulin Ratio 1.3 (0.9-2) Medications Administered Current Inpatient Medications Acetaminophen (Acetaminophen 325 Mg Tab) 325 mg PO Q6H PRN PRN Reason: Mild Pain Stop: 11/15/21 00:14 Last Admin: 10/20/21 03:58 Dose: 325 mg Documented by: Enoxaparin Sodium (Enoxaparin Inj 40 Mg/0.4 Ml Syr) 40 mg SQ QAM [facility] Stop: 11/15/21 08:59 Last Admin: 10/20/21 08:27 Dose: Not Given Documented by: Promethazine HCl 12.5 mg/ (Sodium Chloride) 50.5 mls @ 202 mls/hr IV Q6H PRN PRN Reason: Nausea And Vomiting Stop: 11/15/21 00:14 Lorazepam 0.5 mg/ Syringe 0.5 mls @ 2 mls/min IV Q4H PRN PRN Reason: Anxiety Stop: 11/15/21 00:14 Piperacillin Sod/Tazobactam (Sod 3.375 gm/ Dextrose) 115 mls @ 28.75 mls/hr IV Q8H FORTINO; Protocol Stop: 10/23/21 23:59 Last Infusion: 10/20/21 08:28 Dose: Infused Documented by: Morphine Sulfate (Morphine Sulfate 2 Mg/Ml Carp) 2 mg IV Q4H PRN PRN Reason: Severe pain (7,8,9,10) Stop: 10/30/21 14:39 Oxycodone HCl (Oxycodone Hcl Ir 5 Mg Tab (Immediate Release)) 5 mg PO Q4H PRN PRN Reason: Moderate pain (4,5,6) Stop: 10/30/21 00:14 (1) Pancreatitis Acute pancreatitis complication: unspecified Chronicity: acute Pancreatitis type: unspecified pancreatitis type Qualified Code(s): K85.90 - Acute pancreatitis without necrosis or infection, unspecified
[2021-10-20] MEDS ORDERED: POTASSIUM CHLORIDE 20 MEQ/15 ML UDC PO STA (10:37)
--- NOTE | 2021-10-20 11:00 | Discharge Summary ---
Date of Service October 20, 2021 Admission HPI Per Admitting Provider History obtained from patient and records. No significant medical history. Patient woke up this morning with epigastric discomfort described as tightness. Admits to spicy food and beer intake last night before going to bed. Subsequent emesis. No chest pain, no SOB, no fever, no chills. May have had mild episodes of postprandial discomfort in the past spontaneously resolving. Medical History as above Surgical History : None Family History : Pancreatic tumor, gallstones Personal/Social history : Non-smoker, occasional EtOH intake, [employer] Admission Exam Per Admitting Provider GENERAL: Comfortable, slightly anxious, pleasant, no respiratory distress SKIN: Normal color, warm HEENT: Bespectacled, [place] palpebral conjunctivae, no ptosis, dry buccal mucosa NECK : Supple, no tenderness CHEST : CTA, no tenderness HEART : RRR, no obvious murmurs ABDOMEN: Some distention, epigastric tenderness EXTREMITIES : No LE swelling/tenderness, no other conspicuous deformities noted NEUROLOGIC : Coherent, no facial asymmetry, no other gross focality Principal Diagnosis Choledocholithiasis, reactive cholecystitis, pancreatitis Discharge Exam General- oriented x 3, not in distress, speaks in sentences with no effort or accessory muscle use Eyes- EOMI, anicteric Neck- supple Lungs- mild crackles on the left base Heart- normal rate, regular rhythm; no murmurs Abdomen- normal bowel sounds, nondistended, soft, nontender Extremities- no pretibial edema, no calf tenderness Neuro- alert, oriented x 3; speech fluent, moves extremities Skin- warm & dry Discharge Data Allergies Allergy/AdvReac Type Severity Reaction Status Date / Time No Known Allergies Allergy Unverified 10/15/21 21:35 Consultations 10/15/21 21:15 ED Decision to Admit Stat 10/16/21 00:15 Consult Gastroenterology Routine Consult General Surgery Routine Procedures Performed Operation Date: 10/17/21 09:30 <No data on this case meets the specified criteria> Operation Date: 10/18/21 07:50 Actual Procedures p Endoscopic Retrograde Cholangiopancreato - Arian Hamm DO Operation Date: 10/19/21 07:00 Actual Procedures p Laparoscopic Cholecystectomy(Not Applicable) - Judith Tan MD Ordered Studies 10/15/21 19:48 CT abd pelvis IV con only Stat FINDINGS: Lower chest: Bibasilar atelectasis versus scarring is seen. Liver: Unremarkable. No focal lesions are seen. Gallbladder and biliary tree: The gallbladder wall is thickened measuring 4 mm. Pericholecystic fluid is seen. No intra- or extrahepatic biliary ductal dilation. Pancreas: A small amount of edema is seen at the pancreatic head and there is peripancreatic fluid. Spleen: Unremarkable. Adrenals: Unremarkable. Kidneys and ureters: There is a cyst in the right kidney inferior pole. Bladder: Unremarkable. Reproductive organs: Unremarkable. Bowel: Unremarkable appearance of the bowel. The appendix is normal. Lymph nodes Retroperitoneal: Unremarkable. Mesenteric: Unremarkable. Pelvic: Unremarkable. Peritoneum: Fluid is seen about the pancreas and extending about the upper abdomen. Vessels: Unremarkable. Abdominal wall: Unremarkable. Bones: Unremarkable. IMPRESSION: Findings are compatible with acute pancreatitis with reactive cholecystitis. Primary cholecystitis is considered less likely. No wall off fluid collection or necrosis is seen. 10/16/21 10:29 MR MRCP Urgent IMPRESSION: 1. No biliary ductal dilatation. No common bile duct calculi identified. Apparent irregularity/extrinsic narrowing of the mid common bile duct likely artifactual or related to mass effect on the common bile duct by the edematous pancreas. 2. Cholelithiasis. Small amount of pericholecystic fluid, probably related to acute pancreatitis. 3. Peripancreatic fluid extending into the anterior pararenal spaces. Associated perihepatic and perisplenic fluid. The findings represent an acute pancreatitis. No peripancreatic fluid collection. 10/18/21 [place] ERCP biliary ductal Routine Hospital Course (1) Pancreatitis: per previous provider: Acute pancreatitis Choledocholithiasis Transaminitis --CT ABD:Findings are compatible with acute pancreatitis with reactive cholecystitis. Primary cholecystitis is considered less likely. No wall off fluid collection or necrosis is seen. --MRCP:No biliary ductal dilatation. No common bile duct calculi identified. Apparent irregularity/extrinsic narrowing of the mid common bile duct likely artifactual or related to mass effect on the common bile duct by the edematous pancreas. Cholelithiasis. Small amount of pericholecystic fluid, probably related to acute pancreatitis. Peripancreatic fluid extending into the anterior pararenal spaces. Associated perihepatic and perisplenic fluid. The findings represent an acute pancreatitis. No peripancreatic fluid collection. --S/P ERCP: Choledocholithiasis was found. Complete removal was accomplished by biliary sphincterotomy and balloon extraction. A biliary sphincterotomy was performed. The biliary tree was swept. One biliary stent was placed into the common bile duct. One pancreatic stent was placed into the ventral pancreatic duct. Indomethacin given to decrease risk of post-ERCP pancreatitis. --Avoid aspirin, NSAIDs for 1 week --Needs repeat ERCP in 6 weeks for stent removal -- Blood cultures : No growth to date --Lipase [id number] Continue Zosyn while inpt Continue gentle IV fluids Appreciate GI, surgery input Now s/p cholecystectomy on 10/19/2021 tolerating Clear liquid diet , diet advanced, per surgery - may be DC home LFTs trending down ff up with GI for removal of biliary and pancreatic duct stents in 6 weeks Hyperglycemia HbA1C: 5.5 Situational hypertension BP fluctuating occasionally mildly elevated Monitor Total Time Total Time Spent Total Time Spent (In Minutes): 40 Discharge Plan Discharge Items Patient Disposition: Home - Self-Care Reason For Visit: PANCREATITIS, CHOLECYSTITIS Discharge Diagnosis: Choledocholithiasis, reactive cholecystitis, pancreatitis Activity: Per Instructions section Non-emergency contact: Primary Care Provider and Surgeon Call non-emergency contact if: you have any medication questions and your symptoms worsen Follow-up/Referrals: [facility] Gastroenterology [Other] (The gastroenterology office at [facility] will call you to schedule an ERCP for stent removal. ) Judith Tan MD [Physician] - Jeffrey Nassar MD [Outside Practitioners] - (Date & Time 10/26/2021 3:20 PM Provider Jeffrey Nassar MD Department Family Practice [facility] ) Diet: Regular Addtl Attending Provider Instructions: Follow-up with your primary care doctor, surgeon, and marine meteorologist. The appointment with your primary care doctor was set up for you for October 26. Finish antibiotic treatment with Augmentin, as prescribed. For pain, you can take oxycodone, as prescribed. Please see detailed instructions from your surgeon below. Post-Surgical ~Discharge Instructions Activity Recommendations: - lifting limitation: (20 pounds for 4 weeks), - exercise/sex/sports limit: (nonstrenuous for 2 weeks and until cleared by surgery team), - driving or machine use limit: (none for 1 week or until pain free and no longer taking narcotic pain medication), - Shower/bathe limit: (may shower beginning Sunday, do not submerge incisions underwater for 2 weeks) Diet: - Resume previous diet , advance slowly as tolerated SPECIAL CARE INSTRUCTIONS: - May shower on Sunday. Sponge bath and wash hair in meantime. On Sunday, remove outer dressings and shower. Let water run over area and pat dry. - Leave steri strips on for one week and then remove. They may fall off on their own that is okay. - Call the surgeon's office with any questions or concerns - - (ex. temperature higher than 101 degrees F, excessive bleeding or pain). MEDICATIONS: - Resume previous medications unless instructed otherwise by your surgeon. - May take Tylenol as needed for mild to moderate pain -500 mg every 6 hours as needed - Avoid exceeding 2,000 mg of Tylenol in a 24 hour period - Oxycodone 1 every 4 hours, as needed for severe pain. - Recommend taking daily stool softener (Colace) while taking narcotic pain medication to prevent constipation and straining. Drink plenty of water daily. FOLLOW UP VISIT: - If not already scheduled, please call the office to schedule a two week follow-up appointment. Office number Pending Studies at Discharge: Yes (gallbladder pathology, will be reviewed at follow-up visit) Studies:: Final blood cultures Stand-Alone Forms: My [facility], Work/School Release, Smoking Cessation Medications and DC Order Prescriptions: New oxycodone 5 mg tablet 5 mg PO Q4H PRN (Reason: pain) Qty: 5 RF: 0 amoxicillin-pot clavulanate 875-125 mg tablet 1 tab PO BID 3 Days Qty: 6 RF: 0 Discharge Orders: Discharge Order (Routine); Ordered 10/20/21 Ordered By: Dennis Robles Admission Data Admit Date/Time: 10/15/21 22:52 Attending Provider: Dennis Robles Admit Provider: Jose Angel Mendoza Primary Care Provider: PCP,NO Other Providers: Tima Duckworth ; Jose Angel Mendoza ; Jagruti Hutton ; Magnolia Noble ; Lorie Ramirez ; Cindy Hoffmann ; Quinten Martinez ; Arian Hamm ; Preston Gardner ; Dima Bellamy ; Rosario Snell ; Leticia Ritchie ; Rimma Jones ; Fawn Kwok ; Calvin Wills ; Chun Stoll ; Dk Cook ; Rachel Salcedo ; Suyapa Hamm ; Patricio Morel ; Kasi Maria ; Ca Nguyen ; Magnolia Loza ; Jonathon De Paz Jr ; Judith Tan ; Christopher Peoples ; Fawn Sawyer ; Wade Pruett
== END 2021-10-20 13:53 | disposition home or self-care (01) | DRG 417 ==
LOC: ED 19:37 → SUATTDRO 22:52 → 3N 22:52